=== PATIENT | male | born 1935 | race Caucasian/White ===

== ENCOUNTER 2016-12-17 08:57 | Emergency (ER) | payer MEDICARE, BC ==
[2016-12-17 09:09] VITALS: BP 139/78
--- NOTE | 2016-12-17 09:20 | UC ---
Respiratory Complaint HPI - HPI Summary HPI Summary: cough for 8 months and a 10-20 pound weight loss - History of Current Complaint Chief Complaint: UCRespiratory Stated Complaint: COUGH, AND WEIGHT LOSS Time Seen by Provider: 12/17/16 09:06 Hx Obtained From: Patient, Family/Hamper Maker Machine Onset/Duration: Gradual Onset, Lasting Weeks, Still Present Timing: Constant Severity Initially: Mild Severity Currently: Mild Character: Cough: Nonproductive Aggravating Factors: Nothing Alleviating Factors: Nothing Associated Signs And Symptoms: Positive: Negative - Allergies/Home Medications Allergies/Adverse Reactions: Allergies Allergy/AdvReac Type Severity Reaction Status Date / Time No Known Allergies Allergy Verified 12/17/16 09:09 PMH/Surg Hx/FS Hx/Imm Hx Previously Healthy: No - gout Cardiovascular History: Hypertension - Surgical History Surgical History: Yes Surgery Procedure, Year, and Place: colon resection - Family History Known Family History: Positive: None - Social History Occupation: Retired Lives: Alone Alcohol Use: Daily Substance Use Type: None Smoking Status (MU): Former Smoker Type: Smokeless Tobacco Review of Systems Constitutional: Other - 10-20 pound weight loss in past 8 months Skin: Negative Eyes: Negative ENT: Negative Respiratory: Cough, Other - orthopnea past 8 months Cardiovascular: Negative Gastrointestinal: Negative Genitourinary: Negative Motor: Negative Neurovascular: Negative Musculoskeletal: Negative Neurological: Negative Psychological: Negative All Other Systems Reviewed And Are Negative: Yes Physical Exam Triage Information Reviewed: Yes Appearance: No Pain Distress, Ill-Appearing - chronic, Thin Vital Signs: Initial Vital Signs Temp 97.6 F 12/17/16 09:03 Pulse 63 12/17/16 09:03 Resp 18 12/17/16 09:03 BP 139/78 12/17/16 09:03 Pulse Ox 96 12/17/16 09:03 Vital Signs Reviewed: Yes Eye Exam: Normal Eyes: Positive: Conjunctiva Clear ENT Exam: Normal ENT: Positive: Normal ENT inspection, Hearing grossly normal, Pharynx normal, TMs normal. Negative: Nasal congestion, Nasal drainage, Trismus, Muffled/ hoarse voice Dental Exam: Normal Neck exam: Normal Neck: Positive: Supple, Nontender, No Lymphadenopathy Respiratory Exam: Normal Respiratory: Positive: Chest non-tender, Lungs clear, Normal breath sounds, No respiratory distress, No accessory muscle use Cardiovascular Exam: Normal Cardiovascular: Positive: RRR, No Murmur, Pulses Normal, Brisk Capillary Refill Abdominal Exam: Normal Abdomen Description: Positive: Nontender, No Organomegaly, Soft Bowel Sounds: Positive: Present Musculoskeletal Exam: Normal Musculoskeletal: Positive: Strength Intact, ROM Intact, No Edema Neurological Exam: Normal Neurological: Positive: Alert, Muscle Tone Normal Psychological Exam: Normal Psychological: Positive: Normal Response To Family, Age Appropriate Behavior Skin Exam: Normal UC Diagnostic Evaluation - Laboratory O2 Sat by Pulse Oximetry: 96 - Radiology Xray Interpretation: Positive (See Comments) - chronic obstructive lung disease changes Radiology Interpretation Completed By: ED Physician, Radiologist - EKG Cardiac Rate: Bradycardia Cardiac Rhythm: Sinus: Normal Ectopy: None ST Segment: Normal Respiratory Course/Dx - Course Course Of Treatment: d/c with reccomendation to follow immediatly at emergency department for additional care - Differential Dx/Diagnosis Differential Diagnosis/HQI/PQRI: Asthma, Bronchitis, Laryngitis, Sinusitis, Tuberculosis Provider Diagnoses: Chronic Cough and weight loss - Physician Notification/Consults Instructed by Provider To: Transfer Discharge - Discharge Plan Condition: Stable Disposition: HOME Patient Education Materials: Dyspnea (ED) Referrals: Emanuel Gary MD [Primary Care Provider] - As Soon As Possible Additional Instructions: We are recommending that you report directly to the hospital for further care and evaluation
--- NOTE | 2016-12-17 09:45 | RAD ---
INDICATION: Shortness of breath. Productive cough. COMPARISON: September 22, 2016 chest radiograph. TECHNIQUE: Dual energy PA and routine lateral views of the chest were obtained. REPORT: Elevated lung volumes and both diffuse mild prominence of the interstitial markings and patchy rarefaction of the mid to upper lung zone interstitial markings. No focal pulmonary lesion, compelling alveolar consolidation, pleural effusion, pneumothorax. The heart, pulmonary vasculature, and mediastinal contours are unremarkable. Polyarticular degenerative arthropathy. Suggestion of bilateral gynecomastia. IMPRESSION: Stigmata of probable chronic obstructive lung disease. No acute pulmonary or cardiac process evident.
== END 2016-12-17 10:16 | disposition home or self-care (01) ==
LOC: UCEAST 08:57
DX: R05 Cough (principal); R63.4 Abnormal weight loss; I10 Essential (primary) hypertension
CPT/HCPCS: 71020; 93005; 99211; G0463

== ENCOUNTER 2016-12-17 10:38 | Emergency (ER) | payer MEDICARE, BC ==
[2016-12-17] MEDS ORDERED: methylPREDNISolone 125 MG* 2 ML VIAL IV ONE (17:49)
[2016-12-17] MEDS ORDERED: Albuterol/Ipratropium NEB.SOL* Albuterol 2.5 MG/Ipratropium 0.5 MG 3 ML INH ONE (17:49)
--- NOTE | 2016-12-17 18:44 | ED ---
Jessica Hung Edward, scribed for Shan Hopkins MD on 12/17/16 at 1743 . Shortness of Breath - HPI Summary HPI Summary: 81 y/o male presents to the ED coming from [facility] c/o acute on chronic, gradual onset SOB that has been getting worse since April of 2016 - the past 7/8 months. The pt has also lost weight (roughly 10 lbs) since April of 2016. Associated sx: productive cough (yellow), sleep disturbance and wheezing. Pt has trouble sleeping because lying down aggravates his SOB. Denies CP, calf pain /swelling. Daily drinker. PMHx gout, HTN. SHx colostomy in . Past medications reviewed on visit. - History of Current Complaint Chief Complaint: EDShortnessOfBreath Time Seen by Provider: 12/17/16 17:36 Hx Obtained From: Patient Onset/Duration: Gradual Onset, Lasting Weeks - Months (Apr 2016) Aggrevating Factors: Recumbent Position Associated Signs & Symptoms: Cough (Productive) - Yellow, Wheezing - Allergy/Home Medications Allergies/Adverse Reactions: Allergies Allergy/AdvReac Type Severity Reaction Status Date / Time No Known Allergies Allergy Verified 12/17/16 09:09 Home Medications: Home Medications Allopurinol TAB* [Zyloprim 300 MG TAB*] 300 mg PO DAILY 12/17/16 [History Confirmed 12/17/16] Atenolol TAB* [Tenormin TAB* 50 MG] 25 mg PO DAILY 12/17/16 [History Confirmed 12/17/16] Lisinopril TAB* [Prinivil TAB*] 20 mg PO DAILY 12/17/16 [History Confirmed 12/17] PMH/Surg Hx/FS Hx/Imm Hx Previously Healthy: No Cardiovascular History: Reports: Hx Hypertension - ON MEDS Respiratory History: Denies: Hx Asthma, Hx Chronic Obstructive Pulmonary Disease (COPD) - Surgical History Surgery Procedure, Year, and Place: colon resection Infectious Disease History: No Infectious Disease History: Denies: Traveled Outside the [place] in Last 30 Days - Social History Alcohol Use: Daily Alcohol Amount: 4 beers a day Substance Use Type: Reports: None Smoking Status (MU): Former Smoker Type: Smokeless Tobacco Review of Systems Constitutional: Other - Lost 10 lbs in the past 7-8 months Eyes: Negative ENT: Negative Cardiovascular: Negative Negative: Chest Pain Positive: Shortness Of Breath, Cough, Other - Wheezing Gastrointestinal: Negative Genitourinary: Negative Musculoskeletal: Negative Skin: Negative Neurological: Negative Psychological: Other - Sleep disturbance All Other Systems Reviewed And Are Negative: Yes Physical Exam Triage Information Reviewed: Yes Vital Signs On Initial Exam: Initial Vitals Temp Pulse Resp BP Pulse Ox 97.5 F 59 20 139/74 96 12/17/16 10:51 12/17/16 10:51 12/17/16 10:51 12/17/16 10:51 12/17/16 10:51 Vital Signs Reviewed: Yes Appearance: Positive: Ill-Appearing - chronic, thin, tired, and mild conversational dyspnea Skin: Positive: Pale Head/Face: Positive: Normal Head/Face Inspection Eyes: Positive: EOMI ENT: Positive: Normal ENT inspection Neck: Positive: Nontender Respiratory/Lung Sounds: Positive: Decreased Breath Sounds, Wheezes Cardiovascular: Positive: RRR. Negative: Murmur Abdomen Description: Positive: Nontender Musculoskeletal: Positive: Strength/ROM Intact Neurological: Positive: Sensory/Motor Intact, Alert, Oriented to Person Place, Time, CN Intact II-III Psychiatric: Positive: Normal - Amber Coma Scale Best Eye Response: 4 - Spontaneous Best Motor Response: 6 - Obeys Commands Best Verbal Response: 5 - Oriented Coma Scale Total: 15 Diagnostics - Vital Signs Vital Signs Temp Pulse Resp BP Pulse Ox 12/17/16 17:22 98.5 F 65 20 177/98 96 12/17/16 16:05 97.2 F 54 20 185/98 94 12/17/16 14:53 97.2 F 58 20 195/97 95 12/17/16 13:39 97.2 F 64 20 207/103 94 12/17/16 11:56 97.7 F 60 20 189/88 95 12/17/16 10:51 97.5 F 59 20 139/74 96 - Laboratory Lab Statement: Any lab studies that have been ordered have been reviewed, and results considered in the medical decision making process. - EKG 1 EKG Rhythm: Sinus Rhythm - @ 60 bpm EKG Interpretation: 18:20 - NO STEMI Course/Dx - Course Course Of Treatment: 81 yr old male with weight loss, SOB , chronic coughing, wheezing on exam and dyspnea. Will order CT chest abd pelvis. WOrk up pending. - Diagnoses Provider Diagnoses: Weight loss, Shortness of breath Discharge - Discharge Plan Condition: Fair Disposition: OTHER Discharge Disposition Comment: work up pending, sign out Dr Reeder at 1900 The documentation as recorded by the Jessica nichole Edward accurately reflects the service I personally performed and the decisions made by me, Shan oHpkins MD.
[2016-12-17 18:59] LABS: Hematocrit 46 % (42-52); Hemoglobin 15.3 g/dl (14.0-18.0); Mean Corpuscular HGB Conc 34 g/dl (31-36); Mean Corpuscular Hemoglobin 36 pg (27-31); Mean Platelet Volume 8 um3 (7.4-10.4); Red Blood Count 4.22 10^6/ul (4.0-5.4); Red Cell Distribution Width 16 % (10.5-15); White Blood Count 5.4 10^3/ul (3.5-10.8)
[2016-12-17 19:01] LABS: Add Diff/Slide Review? Slide Review Added; Comments Flag Yes; Mean Corpuscular Volume 108 fL (80-94)
[2016-12-17 19:20] LABS: Troponin I 0.01 ng/mL (<0.04)
[2016-12-17 19:28] LABS: ALT 20 U/L (7-52); Albumin 3.7 g/dL (3.2-5.2); Alkaline Phosphatase 107 U/L (34-104); BUN/Creatinine Ratio 10.8 (8-20); Blood Urea Nitrogen 8 mg/dL (6-24); C Reactive Protein 1.59 mg/L (< 5.00); CO2 Carbon Dioxide 28 mmol/L (22-32); Calcium 9.6 mg/dL (8.6-10.3); Chloride 97 mmol/L (101-111); EGFR African American 131.2 (>60); Globulin 3.8 g/dL (2-4); Glucose 92 mg/dL (70-100); Magnesium 1.9 mg/dL (1.9-2.7); Sodium 132 mmol/L (133-145); Total Protein 7.5 g/dL (6.4-8.9)
[2016-12-17 19:40] LABS: Add Path Review? YES; Macrocytosis 2+
[2016-12-17] MEDS ORDERED: Iohexol 350* (CONTRAST) 500 ML MDV IV ONE (19:52)
[2016-12-17 19:54] LABS: TSH (Thyroid Stimulating Horm) 2.04 mcIU/mL (0.34-5.60)
[2016-12-17 20:41] LABS: Urine Bacteria Absent (Absent); Urine Bilirubin Negative (Negative); Urine Glucose Negative (Negative); Urine Nitrite Negative (Negative)
--- NOTE | 2016-12-17 20:43 | RAD ---
INDICATION: Shortness of breath, weight loss. COMPARISON: Comparison is made with a prior chest x-ray study from December 17, 2016. TECHNIQUE: A CT angiogram of the chest and a CT of the abdomen and pelvis was performed with intravenous contrast following intravenous injection of 100 ml of Omnipaque 350 nonionic contrast. Contiguous axial sections were obtained from the lung apices through the symphysis pubis. Images were reconstructed in the coronal and sagittal planes. FINDINGS: CT ANGIOGRAM OF THE CHEST: There is relatively homogeneous opacification of the pulmonary arteries. No intraluminal filling defect or pulmonary embolism is seen. The heart is within normal limits in size. No pericardial effusion is present. There are coronary artery calcifications. The thoracic aorta is normal in caliber and demonstrates homogeneous contrast opacification without evidence for dissection. There is moderate calcific plaque present. There is a mildly prominent subcarinal lymph node measuring 1.2 cm in transverse dimension. No other enlarged mediastinal lymph nodes are seen. There are mildly prominent hilar lymph nodes on both sides measuring up to 1.4 cm in size. There is a small dependent infiltrate in the right lower lobe suggestive of atelectasis. The lungs are otherwise clear. No pleural effusion is seen. CT OF THE ABDOMEN AND PELVIS: The liver and spleen are normal in size. The liver is mildly heterogeneous. There is a 1.0 cm hypodense area in the superior portion of the right hepatic lobe no other focal lateral abnormalities are seen. No calcified gallstones are noted. The pancreas appears to be within normal limits. The kidneys and adrenal glands are normal in size. No hydronephrosis is seen. No significant focal renal abnormality is seen. The prostate gland is enlarged measuring 6.0 cm in transverse dimension. The abdominal aorta is normal in caliber. There is moderate to severe calcific plaque present. No significant enlarged retroperitoneal lymph nodes are seen. The stomach, small and large bowel appear nondistended. The appendix is not visualized. There are scattered diverticuli throughout the colon. There is no evidence for diverticulitis or colitis. No free intraperitoneal air or fluid is seen. No significant focal osseous abnormality is seen. IMPRESSION: 1. NO EVIDENCE FOR PULMONARY EMBOLISM. 2. MILDLY ENLARGED MEDIASTINAL AND HILAR LYMPH NODES. 3. 1 CM NONSPECIFIC HYPODENSE HEPATIC LESION RECOMMEND A FOLLOW-UP HEPATIC ULTRASOUND FOR FURTHER EVALUATION. 4. PROSTATIC HYPERTROPHY.
[2016-12-17 20:48] LABS: Anion Gap 7 mmol/L (2-11)
[2016-12-17] MEDS ORDERED: Albuterol HFA INHALER* 8 gm MDI INH ONE (21:16)
[2016-12-17] MEDS ORDERED: Levofloxacin TAB* 500 MG PO ONE (21:17)
[2016-12-17 21:36] VITALS: BP 161/82
--- NOTE | 2016-12-18 07:02 | ED ---
Jacob Hung Soohyun, scribed for Lei Reeder MD on 12/17/16 at 2119 . Progress - Progress Note Progress Note: Signed out at shift change from Dr. Hopkins. Upon re-evaluation pt is noted with rhonchi and wheeze at left base. Pt remains stable throughout ED course. Pt is discharged home with dx of asthmatic bronchitis, and weight loss. pt condition was stable - Results/Orders Results/Orders: CTA chest/abd/P -- 1. NO EVIDENCE FOR PULMONARY EMBOLISM. 2. MILDLY ENLARGED MEDIASTINAL AND HILAR LYMPH NODES. 3. 1 CM NONSPECIFIC HYPODENSE HEPATIC LESION RECOMMEND A FOLLOW-UP HEPATIC ULTRASOUND FOR FURTHER EVALUATION. 4. PROSTATIC HYPERTROPHY. Re-Evaluation - Re-Evaluation First Eval Re-Evaluation Time: 21:13 Comment: MD in room to update pt on lab work and imaging results. Hard copies are provided to patient. Course/Dx - Diagnoses Provider Diagnoses: Weight loss, Asthmatic bronchitis The documentation as recorded by the lioribJacob roman Soohyun accurately reflects the service I personally performed and the decisions made by me, Lei Reeder MD.
== END 2016-12-17 21:44 ==
LOC: ED 10:38
DX: J45.909 Unspecified asthma, uncomplicated (principal); R63.4 Abnormal weight loss; R05 Cough; R06.2 Wheezing; Z86.79 Personal history of other diseases of the circulatory system
CPT/HCPCS: 36415; 71275; 74177; 80053; 81003; 81015; 83605; 83735; 83880; 84443; 84484; 85025; 85060; 85610; 86140; 87086; 93005; 94640; 94760; 96374; 99284; A9270-GY; J2930; Q9967

== ENCOUNTER 2017-03-27 19:05 | Inpatient (IN) | payer MEDICARE, BC ==
[2017-03-27 20:56] LABS: Hematocrit 37 % (42-52); Hemoglobin 12.6 g/dl (14.0-18.0); Mean Corpuscular HGB Conc 34 g/dl (31-36); Mean Corpuscular Hemoglobin 36 pg (27-31); Mean Platelet Volume 9 um3 (7.4-10.4); Red Blood Count 3.52 10^6/ul (4.0-5.4); Red Cell Distribution Width 14 % (10.5-15); White Blood Count 7.2 10^3/ul (3.5-10.8)
--- NOTE | 2017-03-27 20:57 | RAD ---
INDICATION: Left-sided weakness COMPARISON: None TECHNIQUE: Noncontrast axial source images were acquired from the skull base to the vertex. FINDINGS: Ventricles/sulci: There is cortical atrophy with compensatory dilatation of the CSF spaces. Brain parenchyma: There is periventricular and subcortical white matter change compatible with chronic ischemia. Intracranial hemorrhage:None. Extra-axial spaces: There are no abnormal extra axial fluid collections or evidence of extra-axial mass. Calvarium: There is no calvarial fracture or other calvarial abnormality. Scalp: There is no evidence of scalp or extracalvarial soft tissue abnormality. Paranasal sinuses/mastoid: There is pansinusitis with both acute and chronic findings with a short air-fluid level in right frontal and ethmoid air cells. Other: None. IMPRESSION: CORTICAL ATROPHY WITH CHRONIC MICROVASCULAR ISCHEMIC CHANGES. FINDINGS OF ACUTE AND CHRONIC PANSINUSITIS
[2017-03-27 21:08] LABS: Albumin 3.3 g/dL (3.2-5.2); BUN/Creatinine Ratio 10.3 (8-20); Calcium 9.6 mg/dL (8.6-10.3); EGFR Non-African American 74.7 (>60); Globulin 3.3 g/dL (2-4); Total Protein 6.6 g/dL (6.4-8.9)
[2017-03-27 21:14] LABS: Urine Bilirubin Negative (Negative); Urine Glucose Negative (Negative); Urine Nitrite Negative (Negative)
[2017-03-27 21:20] LABS: Troponin I 0.01 ng/mL (<0.04)
[2017-03-27 21:31] LABS: Comments Flag Yes
[2017-03-27 21:32] LABS: Add Diff/Slide Review? Slide Review Added; Mean Corpuscular Volume 106 fL (80-94)
[2017-03-27] MEDS ORDERED: Ondansetron INJ* 2 MG/ML VIAL IV PRN (21:37)
[2017-03-27] MEDS ORDERED: Iohexol 350* (CONTRAST) 500 ML MDV IV ONE (21:37)
[2017-03-27] MEDS ORDERED: Acetaminophen TAB* 325 MG PO PRN (21:40)
[2017-03-27] MEDS ORDERED: Aspirin Low Dose CHEW TAB* 81 MG PO ONE (21:40)
--- NOTE | 2017-03-27 21:41 | ED ---
Darnell Hung Nilda, scribed for Cynthia Moses MD on 03/27/17 at 2038 . Neurological HPI - HPI Summary HPI Summary: This patient is a 81 year old M presenting to [facility] accompanied by daughter with a chief complaint of left sided weakness since yesterday. Daughter states that pt leans to the left when standing and has an unsteady gait. The patient rates the pain 0/10 in severity. Symptoms aggravated and alleviated by nothing. Patient reports frequent falls (10x since yesterday), unsteadiness, left knee ecchymosis, LUE abrasion, and numbness in left arm. Daughter denies slurred speech. Pt states he is not on blood thinners. Per daughter, pt has been gradually losing weight and becoming more weak for the past year. - History of Current Complaint Chief Complaint: EDNeurologicalDeficit Stated Complaint: POSS STROKE Time Seen by Provider: 03/27/17 19:58 Hx Obtained From: Patient, Family/Loan Inspector - daughter Onset/Duration: Sudden Onset Timing: Constant Neurological Deficit Location: LUE, LLE Pain Intensity: 0 Pain Scale Used: 0-10 Numeric Character: Weak, Numbness/Tingling, Other: - left sided weakness Aggravating: Nothing Alleviating: Nothing Associated Signs and Symptoms: Positive: Unsteady Gait, Weakness, Numbness TPA Considered: No - Allergy/Home Medications Allergies/Adverse Reactions: Allergies Allergy/AdvReac Type Severity Reaction Status Date / Time No Known Allergies Allergy Verified 12/17/16 09:09 PMH/Surg Hx/FS Hx/Imm Hx Cardiovascular History: Reports: Hx Hypertension - ON MEDS Respiratory History: Denies: Hx Asthma, Hx Chronic Obstructive Pulmonary Disease (COPD) - Surgical History Surgery Procedure, Year, and Place: colon resection, diverticulitis resection Infectious Disease History: No Infectious Disease History: Denies: Traveled Outside the [place] in Last 30 Days - Family History Known Family History: Negative: Hypertension - Social History Occupation: Retired Lives: With Family Alcohol Use: Daily Alcohol Amount: 4 beers a day Substance Use Type: Reports: None Smoking Status (MU): Former Smoker Type: Smokeless Tobacco Review of Systems Positive: Other - LUE abrasion, left knee ecchymosis Neurological: Other - unsteadiness, unsteady gait, falls Positive: Weakness - left sided , Numbness - left arm. Negative: Slurred Speech All Other Systems Reviewed And Are Negative: Yes Physical Exam - Summary Physical Exam Summary: General: Well appearing, no pain distress Skin: Warm, Skin Color Reflects Adequate Perfusion, Dry Eyes: EOMI, GUILLERMO ENT: Pharynx normal, TMs normal Face: Slight left sided facial droop Neck: Supple, nontender Respiratory: CTA, breath sounds present, no rhonchi, no wheezes, no rales Cardiovascular: RRR, no murmur, no rub, no gallop Abdomen: Soft, nontender, Non-distended, no guarding, no rebound Bowel: Present Musculoskeletal: LEXIE, No edema, 3 cm skin tear over left elbow though FROM, contusion on metacarpels distally on 3rd, 4th, and 5th fingers, hematoma over left knee Neuro: Sensory/motor intact, A&Ox3, CN intact 2-12 Psych: Affect/mood appropriate Triage Information Reviewed: Yes Vital Signs On Initial Exam: Initial Vitals Temp Pulse Resp BP Pulse Ox 97.6 F 67 18 138/62 96 03/27/17 19:06 03/27/17 19:06 03/27/17 19:06 03/27/17 19:06 03/27/17 19:06 Vital Signs Reviewed: Yes - Amber Coma Scale Best Eye Response: 4 - Spontaneous Best Motor Response: 6 - Obeys Commands Best Verbal Response: 5 - Oriented Coma Scale Total: 15 Diagnostics - Vital Signs Vital Signs Temp Pulse Resp BP Pulse Ox 03/27/17 19:06 97.6 F 67 18 138/62 96 - Laboratory Lab Results: Lab Results 03/27/17 03/27/17 03/27/17 Range/Units 20:43 20:43 20:43 WBC 7.2 (3.5-10.8) 10^3/ul RBC 3.52 L (4.0-5.4) 10^6/ul Hgb 12.6 L (14.0-18.0) g/dl Hct 37 L (42-52) % MCV 106 H (80-94) fL MCH 36 H (27-31) pg MCHC 34 (31-36) g/dl RDW 14 (10.5-15) % Plt Count 94 L (150-450) 10^3/ul MPV 9 (7.4-10.4) um3 Neut % (Auto) 71.0 (38-83) % Lymph % (Auto) 14.3 L (25-47) % [place] % (Auto) 8.9 (1-9) % Eos % (Auto) 5.1 (0-6) % Baso % (Auto) 0.7 (0-2) % Absolute Neuts (auto) 5.1 (1.5-7.7) 10^3/ul Absolute Lymphs (auto) 1.0 (1.0-4.8) 10^3/ul Absolute Monos (auto) 0.6 (0-0.8) 10^3/ul Absolute Eos (auto) 0.4 (0-0.6) 10^3/ul Absolute Basos (auto) 0.1 (0-0.2) 10^3/ul Absolute Nucleated RBC 0 10^3/ul Nucleated RBC % 0 INR (Anticoag Therapy) 1.02 (0.89-1.11) Sodium 139 (133-145) mmol/L Potassium 4.0 (3.5-5.0) mmol/L Chloride 102 (101-111) mmol/L Carbon Dioxide 29 (22-32) mmol/L Anion Gap 8 (2-11) mmol/L BUN 10 (6-24) mg/dL Creatinine 0.97 (0.67-1.17) mg/dL Est GFR ( Amer) 96.0 (>60) Est GFR (Non-Af Amer) 74.7 (>60) BUN/Creatinine Ratio 10.3 (8-20) Glucose 97 (70-100) mg/dL Lactic Acid (0.5-2.0) mmol/L Calcium 9.6 (8.6-10.3) mg/dL Total Bilirubin 1.00 (0.2-1.0) mg/dL AST 27 (13-39) U/L ALT 18 (7-52) U/L Alkaline Phosphatase 85 (34-104) U/L Troponin I 0.01 (<0.04) ng/mL Total Protein 6.6 (6.4-8.9) g/dL Albumin 3.3 (3.2-5.2) g/dL Globulin 3.3 (2-4) g/dL Albumin/Globulin Ratio 1.0 (1-3) Urine Color Urine Appearance Urine pH (5-9) Ur Specific [place] (1.010-1.030) Urine Protein (Negative) Urine Ketones (Negative) Urine Blood (Negative) Urine Nitrate (Negative) Urine Bilirubin (Negative) Urine Urobilinogen (Negative) Ur Leukocyte Esterase (Negative) Urine Glucose (Negative) 03/27/17 03/27/17 Range/Units 20:43 21:05 WBC (3.5-10.8) 10^3/ul RBC (4.0-5.4) 10^6/ul Hgb (14.0-18.0) g/dl Hct (42-52) % MCV (80-94) fL MCH (27-31) pg MCHC (31-36) g/dl RDW (10.5-15) % Plt Count (150-450) 10^3/ul MPV (7.4-10.4) um3 Neut % (Auto) (38-83) % Lymph % (Auto) (25-47) % [place] % (Auto) (1-9) % Eos % (Auto) (0-6) % Baso % (Auto) (0-2) % Absolute Neuts (auto) (1.5-7.7) 10^3/ul Absolute Lymphs (auto) (1.0-4.8) 10^3/ul Absolute Monos (auto) (0-0.8) 10^3/ul Absolute Eos (auto) (0-0.6) 10^3/ul Absolute Basos (auto) (0-0.2) 10^3/ul Absolute Nucleated RBC 10^3/ul Nucleated RBC % INR (Anticoag Therapy) (0.89-1.11) Sodium (133-145) mmol/L Potassium (3.5-5.0) mmol/L Chloride (101-111) mmol/L Carbon Dioxide (22-32) mmol/L Anion Gap (2-11) mmol/L BUN (6-24) mg/dL Creatinine (0.67-1.17) mg/dL Est GFR ( Amer) (>60) Est GFR (Non-Af Amer) (>60) BUN/Creatinine Ratio (8-20) Glucose (70-100) mg/dL Lactic Acid 1.8 (0.5-2.0) mmol/L Calcium (8.6-10.3) mg/dL Total Bilirubin (0.2-1.0) mg/dL AST (13-39) U/L ALT (7-52) U/L Alkaline Phosphatase (34-104) U/L Troponin I (<0.04) ng/mL Total Protein (6.4-8.9) g/dL Albumin (3.2-5.2) g/dL Globulin (2-4) g/dL Albumin/Globulin Ratio (1-3) Urine Color Yellow Urine Appearance Clear Urine pH 7.0 (5-9) Ur Specific [place] 1.005 L (1.010-1.030) Urine Protein Negative (Negative) Urine Ketones Negative (Negative) Urine Blood Negative (Negative) Urine Nitrate Negative (Negative) Urine Bilirubin Negative (Negative) Urine Urobilinogen Negative (Negative) Ur Leukocyte Esterase Negative (Negative) Urine Glucose Negative (Negative) Result Diagrams: 03/27/17 20:43 03/27/17 20:43 Lab Statement: Any lab studies that have been ordered have been reviewed, and results considered in the medical decision making process. - CT Brain CT Interpretation Completed By: Radiologist - CT Brain, per radiologist, reveals CORTICAL ATROPHY WITH CHRONIC MICROVASCULAR ISCHEMIC CHANGES. FINDINGS OF ACUTE AND CHRONIC PANSINUSITIS. ED physician has reviewed this radiology report and agrees. - EKG 191 Cardiac Rate: NL EKG Rhythm: Sinus Rhythm - 65 bpm EKG Interpretation: trigeminy EKG Comparison: Other - Besides trigeminy, EKG is unchanged from 12/17/16 EKG. NIH Scale - NIH Scale Level of Consciousness: Alert/Keenly Responsive Ask Patient the Month and His/Her Age: Both Correct Ask Pt to Open/Close Eyes and Garment Sewer Hand/Release Non-Paretic Hand: Both Correctly Best Gaze (Only Horizontal Eye Movement): Normal Visual Field Testing: No Visual Loss Facial Paresis-Pt to Smile & Close Eyes or Grimace Symmetry: Minor Paralysis Motor Function - Right Arm: No Drift-Holds 10 Seconds Motor Function - Left Arm: No Drift-Holds 10 Seconds Motor Function - Right Leg: No Drift-Holds 10 Seconds Motor Function - Left Leg: No Drift-Holds 10 Seconds Limb Ataxia-Must be out of Proportion to Weakness Present: Absent Sensory (Use Pinprick to Test Arms/Legs/Trunk/Face): Normal Best Language (Describe Picture, Name Items): No Aphasia Dysarthria (Read Several Words): Normal Extinction and Inattention: No Abnormality Total Score: 1 Course/Dx - Course Assessment/Plan: EKG reveals NSR, 65 bpm, with trigeminy. Besides trigeminy, EKG is unchanged from 12/17/[address] Brain, per radiologist, reveals CORTICAL ATROPHY WITH CHRONIC MICROVASCULAR ISCHEMIC CHANGES. FINDINGS OF ACUTE AND CHRONIC PANSINUSITIS. ED physician has reviewed this radiology report and agrees. NIH = 1 for minor facial droop. [address] Rod (hospitalist) accepts pt for admit. - Diagnoses Provider Diagnoses: CVA (cerebral vascular accident) - Physician Notifications Discussed Care Of Patient With: Karie Rod - Hospitalist Time Discussed With Above Provider: 21:09 Instructed by Provider To: Admit As Inpatient Discharge - Discharge Plan Condition: Stable Disposition: ADMITTED TO [facility] Referrals: Bladimir Austin MD [Primary Care Provider] - The documentation as recorded by the Darnell nichole Nilda accurately reflects the service I personally performed and the decisions made by me, Cynthia Moses MD.
[2017-03-27] MEDS ORDERED: Aspirin EC Low Dose* 81 MG TAB.EC PO ONE (21:50)
[2017-03-27] MEDS ORDERED: Albuterol 2.5 MG/3 ML NEB.SOL* (0.083%) INH PRN (21:54)
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
[2017-03-28 07:09] LABS: Hematocrit 33 % (42-52); Hemoglobin 11.3 g/dl (14.0-18.0); Mean Corpuscular HGB Conc 34 g/dl (31-36); Mean Corpuscular Hemoglobin 36 pg (27-31); Mean Platelet Volume 9 um3 (7.4-10.4); Red Cell Distribution Width 14 % (10.5-15)
[2017-03-28 07:10] LABS: Comments Flag Yes; Mean Corpuscular Volume 106 fL (80-94)
[2017-03-28 07:19] LABS: BUN/Creatinine Ratio 11.8 (8-20); Calcium 8.9 mg/dL (8.6-10.3); EGFR African American 111.8 (>60); HDL Cholesterol 37.1 mg/dL; Potassium 3.6 mmol/L (3.5-5.0)
--- NOTE | 2017-03-28 07:42 | RAD ---
INDICATION: Cerebrovascular accident. COMPARISON: Comparison is made with a prior CT of the brain from March 27, 2017. TECHNIQUE: Sagittal T1, axial T1, T2, susceptibility, FLAIR and diffusion weighted images were obtained. FINDINGS: The ventricles, cisterns and sulci are prominent consistent with diffuse atrophy. There are small focal areas of increased signal intensity on T2-weighted images present within the subcortical and periventricular white matter most consistent with mild to moderate chronic small vessel ischemic changes. There is a focal area of restricted diffusion present within the mehreen posterior laterally on the right side measuring 1.2 x 0.7 cm in size most consistent with an acute or subacute infarct. There is no evidence for hemorrhage. There is suggestion of a second tiny area of restricted diffusion present in the subcortical white matter in the left frontal lobe measuring 0.5 and 0.2 cm in size. There is near complete opacification of the right maxillary sinus and significant mucosal thickening within the left maxillary ethmoid, sphenoid and frontal sinuses consistent with sinusitis. IMPRESSION: 1. ACUTE TO SUBACUTE LACUNAR TYPE INFARCT PRESENT WITHIN THE MEHREEN ON THE RIGHT SIDE. 2. POSSIBLE SECOND SMALL AREA OF ISCHEMIA OR INFARCT PRESENT IN THE LEFT FRONTAL LOBE. 3. MILD TO MODERATE CHRONIC SMALL VESSEL ISCHEMIC CHANGES. 4. FINDINGS CONSISTENT WITH PANSINUSITIS.
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
--- NOTE | 2017-03-28 07:59 | RAD ---
CPT II: CPT II Codes: 3100F INDICATION: Left-sided weakness COMPARISON: Noncontrast CT of the brain from the same date. TECHNIQUE: A CT angiogram of the head and neck was performed with 80 cc of Omnipaque 350. Contiguous axial sections were obtained from the thoracic inlet through the kobuk of Andrew. Images were reconstructed in the sagittal, coronal planes and in a 3-D volume rendered format. The distal cervical internal carotid artery diameter is used as the denominater for stenosis measurement. CTA NECK: The common and internal carotid arteries are patent without hemodynamically significant stenosis. Right: Below the carotid bifurcation the common carotid artery measures 8 mm in diameter. There is coarse atherosclerotic calcification of the carotid bulb but the artery only narrows to a short axis diameter of 8 mm yielding 0% degree stenosis. Left: Below the carotid bifurcation the common carotid artery measures 7 mm and diameter. There is exuberant calcified atherosclerosis at the carotid bulb narrowing the lumen to a short axis diameter of 3 mm. This causes 57% degree stenosis. The vertebral arteries are patent without gross abnormality. There is coarse atherosclerotic calcification at the origin of the left subclavian artery. CTA of the brain: The internal carotid, anterior and middle cerebral arteries appear are patent without high grade stenosis or occlusion. There is moderate calcified atherosclerosis of the petrous carotid arteries bilaterally. The vertebral, basilar and posterior cerebral arteries appear patent without high grade stenosis or occlusion. Bilaterally the posterior communicating arteries are either extremely diminutive or absent causing the kob[place] of Andrew to be incomplete. No focal luminal filling defect, aneurysm or vascular malformation is seen. NON-ARTERIAL FINDINGS: There is near complete opacification of the bilateral maxillary sinuses and ethmoid air cells. There is moderate mucosal thickening of the sphenoid sinuses. There is near complete opacification of the frontal sinuses. The right globe is hypoplastic relative to the left. Multilevel degenerative changes of the cervical spine includes loss of intervertebral disc height and marginal osteophyte formation. IMPRESSION: 1. Coarse calcification at the left carotid bulb causes approximately 57% degree stenosis. 2. There are no definite focal abrupt filling defects are other acute arterial abnormalities. 3. The right globe is hypoplastic relative to the left. This is likely chronic. Please correlate to physical examination and/or ophthalmic history. 4. Pansinusitis.
[2017-03-28] MEDS ORDERED: Pneumococcal *Vac Polyvalent 0.5 ML VIAL IM ONE (09:00)
[2017-03-28] MEDS: Allopurinol TAB* 300 MG PO SCH (09:41)
[2017-03-28] MEDS: Aspirin EC Low Dose* 81 MG TAB.EC PO SCH (09:42)
--- NOTE | 2017-03-28 13:23 | PN ---
Subjective Date of Service: 03/28/17 Interval History: This is a 81 yo male with HTN who presented with c/o gait imbalance. He was admitted with suspected CVA, later confirmed by MRI. Patient reports that he is feeling relatively well. He participated in PT this am and required some supervision with a walker, but otherwise did quite well. He denies CP, SOB, abd pain, n/v. No new weakness, numbness or tingling. Objective Active Medications: Acetaminophen (Tylenol Tab*) 650 mg PO Q4H PRN PRN Reason: FEVER/PAIN Albuterol (Ventolin 2.5 Mg/3 Ml Neb.Mary*) 2.5 mg INH Q2H PRN PRN Reason: SOB/WHEEZING Allopurinol (Zyloprim Tab*) 300 mg PO DAILY [facility] Last Admin: 03/28/17 09:41 Dose: 300 mg Aspirin (Aspirin Ec Low Dose*) 81 mg PO DAILY [facility] Last Admin: 03/28/17 09:42 Dose: 81 mg Atenolol (Tenormin Tab*) 25 mg PO DAILY [facility] Atorvastatin Calcium (Lipitor*) 40 mg PO 1700 [facility] Ondansetron HCl (Zofran Inj*) 4 mg IV Q6H PRN PRN Reason: NAUSEA Vital Signs: Temp Pulse Resp BP Pulse Ox 98.2 F 65 20 123/51 96 03/28/17 11:19 03/28/17 11:19 03/28/17 11:19 03/28/17 11:19 03/28/17 11:19 Oxygen Devices in Use Now: None Appearance: Well appearing elderly gentleman in NAD. Accompanied by his daughter. Respiratory: Symmetrical Chest Expansion and Respiratory Effort, Clear to Auscultation Cardiovascular: NL Sounds; No Murmurs; No JVD, RRR Abdominal: NL Sounds; No Tenderness; No Distention Extremities: No Edema Skin: No Rash or Ulcers Neurological: Alert and Oriented x 3, - - reduced strength in the LLE Result Diagrams: 03/28/17 06:35 03/28/17 06:35 Additional Lab and Data: . Diagnostic Imaging: MRI brain - acute/subacute lacunar infarct of the R logan and possible L frontal infarct with pansinusitis CTA - L carotid stenosis of 57% Echo - pend Assess/Plan/Problems-Billing Assessment: This is a 81 yo male with HTN and h/o gout and PUD who presented with c/o gait imbalance, admitted with acute CVA. - Patient Problems (1) Acute CVA (cerebrovascular accident) Comment: R logan infarct and possible L frontal infarct Echo pending Moderate stenosis of L ICA Start ASA and statin, LDL near target (2) Hypertension Comment: Normotensive Holding Lasix and cont atenolol (3) Full code status (4) DVT prophylaxis Comment: Start Lovenox SQ as area of infarct is small Status and Disposition: Inpatient. Referral initiated to [facility]. Anticipate readiness for dc tomorrow.
--- NOTE | 2017-03-28 13:32 | CONS ---
CONSULTING REPORT: PATIENT OF: LEAH Muñoz and Dr. Austin. DATE OF CONSULT: 03/28/17 HISTORY OF PRESENT ILLNESS: This is a 81-year-old right-handed man who has a longstanding history of hypertension, who presents with left-sided incoordination. He was admitted yesterday in the afternoon prior to that. He developed falling to the left not to the right. He had been walking independently prior to this. There was no dizziness, room spinning, lightheadedness, visual symptoms. No clear weakness or numbness. Because symptoms persisted and he was bruising himself, he came to the emergency room. He has had no recent head trauma surgery. He has had no prior stroke. He has no history of atrial fibrillation. He does not smoke. He smoked cigars more than 30 years ago. PAST MEDICAL HISTORY: Significant for diverticulitis, hypertension, gout, peptic ulcer disease. He is status post a partial colectomy for diverticulitis. He has a herniorrhaphy and a cataract surgery. 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 MEDICATIONS: He is on: 1. Lisinopril 20 mg daily. 2. Atenolol 25 mg daily. 3. He was not on aspirin or any antiplatelet medicine on admission. ALLERGIES: He has no known drug allergies. FAMILY HISTORY: There is no family history for a stroke. His mother lived into her 90s. SOCIAL HISTORY: He does use chewing tobacco. He does not drink or use drugs. His father when he was 4, run over by a train. REVIEW OF SYSTEMS: Negative in all 14 spheres other than the HPI. PHYSICAL EXAM: On exam, temperature 98.6, pulse 66, respirations 16, blood pressure 130/70. He is alert and oriented with normal speech and comprehension. Cranial nerves II through XII were intact other than his right eye, which is blind on a chronic basis and no nystagmus in the left eye. I do not appreciate a facial droop on the left today, although it was present on admission. He had dysmetria in his left arm and leg and when he stood he had a wide-based unsteady. Strength is 5/5. He had a slight left pronator drift. Sensation intact to light touch. Reflexes were 1 on equal, toes are downgoing. Neck was supple. Cardiovascular: Regular rate and rhythm. Abdomen is soft with positive bowel sounds. I reviewed his MRI scan which did show an acute stroke in the right logan. There was some mild chronic ischemic changes. He had congestion in his sinuses. He states he has a cold and has no symptoms of sinusitis. The radiologist read a possible left frontal acute stroke as well. This may just be part of his gyrus on that side, which dips, but it is possible that this is a second stroke, it is hard to be sure about this. DIAGNOSTIC STUDIES/LAB DATA: His CTA did not show any critical findings. There was calcification in his left carotid bulb, which was described as 57% degree stenosis. CT scan of the head was also done. His EKG showed ventricular trigeminy. Normal sinus rhythm. Labs include white count of 6, hematocrit of 33, platelet count of 87. INR normal. Normal CMP. LDL was 71. Vitamin B12 was 894. 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 He will need a physical therapy and perhaps can go to rehab. His echo should be done with a bubble study and I will speak to the radiologist how to assess his MRI scan better. His left frontal finding may well not be ischemic, but if it is ischemic and acute, then it would suggest embolic. I will discuss with radiologist whether a followup MRI scan which show evolution of this if it is ischemic and whether it would be useful and may change his treatment parameters for now. He will just be on the baby aspirin and his platelet count is low, so would not be more aggressive than that. Thank you for sharing his case. [id number]/[facility] #: [id number] JULIETTE
[2017-03-28] MEDS: Enoxaparin(*) 40 MG/0.4 ML SYR SUBCUT SCH (14:13)
[2017-03-28] MEDS: Atorvastatin* 40 MG TAB PO SCH (17:06)
--- NOTE | 2017-03-28 17:29 | ECHO ---
Patient: HANNAH ADAMS [facility] Rec#: [id number] : 1935 Date: 03/28/2017 Age: 81y Height: 162.56 cm / 64.0 in Weight: 54.43 kg / 120.0 lbs Sex: M BSA: 1.57 Room#: [facility] Admit Date#: 03/27/2017 Type: Inpatient Referring: Jakob Sims NP Reading: Chencho Marte DO Student Services Rep: Karmen Hudson RDCS CC: Baldimir Austin MD Transthoracic Echocardiogram Indication: CVA BP: 121/66 HR: 63 Rhythm: NSR with PVCs Findings History: HTN, gout. Technical Comments: The study quality is poor. The study is technically limited due to poor acoustic windows. The study is technically limited due to poor parasternal windows. Completed at 1445. Left Ventricle: The left ventricular chamber size is normal. Mild concentric left ventricular hypertrophy is observed. Global left ventricular wall motion and contractility are within normal limits. There is normal left ventricular systolic function. The estimated ejection fraction is 60-65%. Abnormal left ventricular diastolic filling is observed, consistent with impaired relaxation. Left Atrium: The left atrium is mildly dilated. Right Ventricle: The right ventricular chamber size and systolic function are within normal limits. Right Atrium: The right atrium is mildly dilated. Interatrial septum appears intact without evidence of shunting. The bubble study is negative. A patent foramen ovale is not demonstrated with color Doppler and agitated contrast. Aortic Valve: The aortic valve is trileaflet. The aortic valve leaflets are mildly thickened. There is no evidence of aortic regurgitation. There is no evidence of aortic stenosis. Mitral Valve: The mitral valve leaflets are mildly thickened. There is mild mitral regurgitation. There is no evidence of mitral stenosis. Tricuspid Valve: The tricuspid valve leaflets are mildly thickened. There is mild tricuspid regurgitation. No pulmonary hypertension is noted. There is no tricuspid stenosis. Pulmonic Valve: The pulmonic valve structure is not well visualized. There is no pulmonic stenosis. Pericardium: There is no significant pericardial effusion. Aorta: There is mild dilatation of the ascending aorta. There is no dilatation of the aortic arch. There is mild dilatation of the aortic root. Pulmonary Artery: The main pulmonary artery is not well visualized. Venous: The inferior vena cava appears normal in size. There is a greater than 50% respiratory change in the inferior vena cava dimension. Contrast: Normal saline was used as contrast for the bubble study. Images 98 and 99. Intravenous contrast was used to help determine presence of intracardiac shunting. Conclusions The left ventricular chamber size is normal. Mild concentric left ventricular hypertrophy is observed. Global left ventricular wall motion and contractility are within normal limits. There is normal left ventricular systolic function. The estimated ejection fraction is 60-65%. The left atrium is mildly dilated. The right ventricular chamber size and systolic function are within normal limits. No more than mild valvular regurgitation noted. There is mild dilatation of the aortic root and ascending aorta The agitated saline "bubble study" is negative. No prior studies available for comparison at time of interpretation. Measurements Name Value Normal Range RVIDd (AP) 2D 3.1 cm (0.9 - 2.6) RVDdMajor (2D) 4.1 cm (2.2 - 4.4) RAd ISD 4CH 5.1 cm (3.4 - 4.9) RA (A4C)W 4.8 cm (2.9 - 4.6) IVSd (2D) 1.1 cm (0.6 - 1) LVPWd (2D) 1.1 cm (0.6 - 1) LVIDs (2D) 3.1 cm - LV FS (2D) 22 % (25 - 45) Aortic Annulus 2.5 cm (1.4 - 2.6) Ao root diameter (2D) 3.8 cm (2.1 - 3.5) Ascending Ao 3.8 cm (2.1 - 3.4) Aortic arch 3 cm (1.8 - 3.4) LA dimension (AP) 2D 3.8 cm (2.3 - 3.8) LAd ISD 4CH 4.7 cm (2.9 - 5.3) LA ISD 4CH W 4.2 cm (2.5 - 4.5) Name Value Normal Range LA ESV SP 4CH (A/L) 64 ml - LA ESV BP (A/L) index 60 ml/m2 - LA ESV SP 4CH (MOD) 55 ml - Name Value Normal Range MV E-wave Vmax 0.57 m/sec - MV deceleration time 267.42 msec - MV A-wave Vmax 0.91 m/sec - MV E:A ratio 0.62 ratio - LV septal e' Vmax 0.05 m/sec - LV lateral e' Vmax 0.07 m/sec - LV E:e' septal ratio 11.4 ratio - LV E:e' lateral ratio 8.14 ratio - Name Value Normal Range AV Vmax 0.97 m/sec - AV VTI 22.29 cm - AV peak gradient 3.8 mmHg - AV mean gradient 2.13 mmHg - LVOT Vmax 0.89 m/sec - LVOT VTI 15.24 cm - LVOT peak gradient 3.19 mmHg - LVOT mean gradient 1.83 mmHg - Name Value Normal Range MR flow (PISA) 22.2 ml/sec - MR PISA radius 0.3 cm - MR alias Vmax 42 cm/sec - Name Value Normal Range TR Vmax 2.2 m/sec - TR peak gradient 19 mmHg - RAP 3 mmHg - RVSP 22 mmHg - IVC diameter 1.4 cm - Name Value Normal Range PV Vmax 0.84 m/sec - PV peak gradient 2.85 mmHg -
[2017-03-29] MEDS: Allopurinol TAB* 300 MG PO SCH (09:54)
[2017-03-29] MEDS: Atenolol TAB* 25 MG PO SCH (09:54)
[2017-03-29] MEDS: Aspirin EC Low Dose* 81 MG TAB.EC PO SCH (09:54)
--- NOTE | 2017-03-29 10:36 | PN ---
Subjective Date of Service: 03/29/17 Interval History: Patient offers no new complaints. Continues to be unsteady on his feet. He has a chronic cough at night, no SOB. No c/o CP, abd pain, n/v. Objective Active Medications: Acetaminophen (Tylenol Tab*) 650 mg PO Q4H PRN PRN Reason: FEVER/PAIN Albuterol (Ventolin 2.5 Mg/3 Ml Neb.Mary*) 2.5 mg INH Q2H PRN PRN Reason: SOB/WHEEZING Allopurinol (Zyloprim Tab*) 300 mg PO DAILY [facility] Last Admin: 03/29/17 09:54 Dose: 300 mg Aspirin (Aspirin Ec Low Dose*) 81 mg PO DAILY [facility] Last Admin: 03/29/17 09:54 Dose: 81 mg Atenolol (Tenormin Tab*) 25 mg PO DAILY [facility] Last Admin: 03/29/17 09:54 Dose: 25 mg Atorvastatin Calcium (Lipitor*) 40 mg PO 1700 [facility] Last Admin: 03/28/17 17:06 Dose: 40 mg Enoxaparin Sodium (Lovenox(*)) 40 mg SUBCUT Q24H [facility] Last Admin: 03/28/17 14:13 Dose: 40 mg Ondansetron HCl (Zofran Inj*) 4 mg IV Q6H PRN PRN Reason: NAUSEA Vital Signs: Temp Pulse Resp BP Pulse Ox 98.5 F 41 16 143/78 94 03/29/17 07:19 03/29/17 07:19 03/29/17 07:19 03/29/17 07:19 03/29/17 07:19 Oxygen Devices in Use Now: None Appearance: Elderly male in NAD Respiratory: Symmetrical Chest Expansion and Respiratory Effort, Clear to Auscultation Cardiovascular: NL Sounds; No Murmurs; No JVD, RRR Abdominal: NL Sounds; No Tenderness; No Distention Extremities: No Edema Skin: No Rash or Ulcers Neurological: Alert and Oriented x 3 Result Diagrams: 03/28/17 06:35 03/28/17 06:35 Additional Lab and Data: . Diagnostic Imaging: MRI brain - acute/subacute lacunar infarct of the R logan and possible L frontal infarct with pansinusitis CTA - L carotid stenosis of 57% Echo - pend Assess/Plan/Problems-Billing Assessment: This is a 81 yo male with HTN and h/o gout and PUD who presented with c/o gait imbalance, admitted with acute CVA. - Patient Problems (1) Acute CVA (cerebrovascular accident) Comment: R logan infarct and possible L frontal infarct Echo unremarkable Moderate stenosis of L ICA Started ASA and statin, LDL near target (2) Hypertension Comment: Normotensive Holding Lasix and cont atenolol (3) Full code status (4) DVT prophylaxis Comment: Lovenox SQ Status and Disposition: Inpatient. Plan for dc to [facility] Saturday.
[2017-03-29] MEDS: Enoxaparin(*) 40 MG/0.4 ML SYR SUBCUT SCH (13:52)
[2017-03-29] MEDS: Atorvastatin* 40 MG TAB PO SCH (17:38)
[2017-03-30] MEDS: Allopurinol TAB* 300 MG PO SCH (08:59)
[2017-03-30] MEDS: Atenolol TAB* 25 MG PO SCH (08:59)
[2017-03-30] MEDS: Aspirin EC Low Dose* 81 MG TAB.EC PO SCH (08:59)
--- NOTE | 2017-03-30 13:36 | PN ---
Subjective Date of Service: 03/30/17 Interval History: Some unsteadiness walking. No other c/o. Objective Active Medications: Acetaminophen (Tylenol Tab*) 650 mg PO Q4H PRN PRN Reason: FEVER/PAIN Albuterol (Ventolin 2.5 Mg/3 Ml Neb.Mary*) 2.5 mg INH Q2H PRN PRN Reason: SOB/WHEEZING Allopurinol (Zyloprim Tab*) 300 mg PO DAILY [facility] Last Admin: 03/30/17 08:59 Dose: 300 mg Aspirin (Aspirin Ec Low Dose*) 81 mg PO DAILY [facility] Last Admin: 03/30/17 08:59 Dose: 81 mg Atenolol (Tenormin Tab*) 25 mg PO DAILY [facility] Last Admin: 03/30/17 08:59 Dose: 25 mg Atorvastatin Calcium (Lipitor*) 40 mg PO 1700 [facility] Last Admin: 03/29/17 17:38 Dose: 40 mg Enoxaparin Sodium (Lovenox(*)) 40 mg SUBCUT Q24H [facility] Last Admin: 03/29/17 13:52 Dose: 40 mg Ondansetron HCl (Zofran Inj*) 4 mg IV Q6H PRN PRN Reason: NAUSEA Vital Signs 03/29/17 03/29/17 03/29/17 15:34 19:40 20:00 Temperature 98.6 F 98.4 F Pulse Rate 68 67 Respiratory 18 16 16 Rate Blood Pressure 142/55 154/73 (mmHg) O2 Sat by Pulse 97 95 Oximetry 03/29/17 03/30/17 03/30/17 23:43 00:37 03:32 Temperature 98.0 F 97.9 F Pulse Rate 70 72 Respiratory 16 16 Rate Blood Pressure 185/79 160/90 152/77 (mmHg) O2 Sat by Pulse 94 96 Oximetry 03/30/17 03/30/17 08:00 08:26 Temperature 98.6 F Pulse Rate 73 Respiratory 16 16 Rate Blood Pressure 139/83 (mmHg) O2 Sat by Pulse 96 Oximetry Oxygen Devices in Use Now: None Appearance: Alert, in a chair. In good spirits. Looks comfortable. Eyes: No Scleral Icterus, - - Blind in R eye, R ptosis since accident a few years ago. Neck: NL Appearance and Movements; NL JVP, No Thyroid Enlargement, Masses Respiratory: Symmetrical Chest Expansion and Respiratory Effort, Clear to Auscultation, Clear to Percussion Cardiovascular: NL Sounds; No Murmurs; No JVD, RRR, No Edema, - Extremities: No Edema, No Clubbing, Cyanosis, - Skin: No Rash or Ulcers, No Nodules or Sclerosis, - Neurological: Alert and Oriented x 3, NL Sensation Result Diagrams: 03/28/17 06:35 03/28/17 06:35 Additional Lab and Data: . Diagnostic Imaging: MRI brain - acute/subacute lacunar infarct of the R logan and possible L frontal infarct with pansinusitis CTA - L carotid stenosis of 57% Echo - pend Assess/Plan/Problems-Billing Assessment: This is a 81 yo male with HTN and h/o gout and PUD who presented with c/o gait imbalance, admitted with acute CVA. - Patient Problems (1) Acute CVA (cerebrovascular accident) Current Visit: Yes Status: Acute Code(s): I63.9 - CEREBRAL INFARCTION, UNSPECIFIED SNOMED Code(s): 095421715 Comment: R logan infarct and possible L frontal infarct Echo unremarkable Moderate stenosis of L ICA Continue ASA and statin. (2) Hypertension Current Visit: Yes Status: Acute Code(s): I10 - ESSENTIAL (PRIMARY) HYPERTENSION SNOMED Code(s): 70508874 Comment: Holding Lasix and cont atenolol (3) Peptic ulcer disease Current Visit: Yes Status: Acute Code(s): K27.9 - PEPTIC ULC, SITE UNSP, UNSP AC OR CHR, W/O HEMOR OR PERF SNOMED Code(s): 15067342 Comment: Continue home dose omeprazole. Status and Disposition: Inpatient. Plan for dc to [facility] Saturday.
[2017-03-30] MEDS ORDERED: Omeprazole CAP* 20 MG PO SCH (14:00)
[2017-03-30] MEDS: Enoxaparin(*) 40 MG/0.4 ML SYR SUBCUT SCH (14:38)
[2017-03-30] MEDS ORDERED: GuaiFENesin DM* 5 ML UDC PO PRN (15:55)
[2017-03-30] MEDS: Atorvastatin* 40 MG TAB PO SCH (17:51)
[2017-03-31 06:14] LABS: Hematocrit 32 % (42-52); Hemoglobin 10.9 g/dl (14.0-18.0); Mean Corpuscular HGB Conc 34 g/dl (31-36); Mean Corpuscular Hemoglobin 36 pg (27-31); Mean Platelet Volume 9 um3 (7.4-10.4); Red Cell Distribution Width 14 % (10.5-15); White Blood Count 5.6 10^3/ul (3.5-10.8)
[2017-03-31 06:26] LABS: Comments Flag Yes; Mean Corpuscular Volume 107 fL (80-94)
[2017-03-31 09:02] VITALS: BP 149/63
--- NOTE | 2017-03-31 09:29 | PN ---
Progress Note - Progress Note Date of Service: 03/31/17 Note: Time spent on discharge 35 minutes. I discussed dx, tx, and prognosis with his daughter.
[2017-03-31] MEDS: Allopurinol TAB* 300 MG PO SCH (09:33)
[2017-03-31] MEDS: Atenolol TAB* 25 MG PO SCH (09:33)
[2017-03-31] MEDS: Aspirin EC Low Dose* 81 MG TAB.EC PO SCH (09:33)
--- NOTE | 2017-03-31 10:48 | DS ---
CC: Dr. Austin DISCHARGE SUMMARY: DATE OF ADMISSION: 03/27/17 DATE OF TRANSFER: 03/31/17 HISTORY OF PRESENT ILLNESS: This 81-year-old man presented with ataxia and complaint of falling to the left. He was felt to have a cerebrovascular accident. MRI of the brain showed an acute- to-subacute lacunar infarct in the right logan and a possible small area of ischemia or infarct in the left frontal lobe. CTA of the head did not show any significant stenosis. The patient received physical therapy and occupational therapy. He did well, although he still showed some ataxia and gait instability. He was being transferred to the [facility] for rehabilitation. FINAL DIAGNOSES: 1. Cerebrovascular accident. 2. Hypertension. 3. Peptic ulcer disease. MEDICATIONS ON DISCHARGE: 1. Acetaminophen 650 mg every 4 hours p.r.n. 2. Albuterol 2.5 mg by nebulizer every 2 hours p.r.n. 3. Allopurinol 300 mg daily. 4. Aspirin 81 mg daily. 5. Atenolol 25 mg daily. 6. Atorvastatin 40 mg daily at 1700 hours. 7. Guaifenesin DM 10 mL every 4 hours p.r.n. 8. Omeprazole 20 mg every 48 hours. 9. Enoxaparin 40 mg subcu every 24 hours. [id number]/[facility] #: [id number] MTD[facility]
== END 2017-03-31 11:40 | DRG 66 ==
LOC: ED 19:05 → MEDTELE 23:56
PROVIDERS: ADMIT Pediatrics; ATTEND Internal Medicine
DX: I63.8 Other cerebral infarction (principal); F17.220 Nicotine dependence, chewing tobacco, uncomplicated; I10 Essential (primary) hypertension; R26.0 Ataxic gait; K27.9 Peptic ulcer, site unspecified, unspecified as acute or chronic, without hemorrhage or perforation; J32.4 Chronic pansinusitis; M10.9 Gout, unspecified; S50.02XA Contusion of left elbow, initial encounter; S89.82XA Other specified injuries of left lower leg, initial encounter; W18.30XA Fall on same level, unspecified, initial encounter; Z79.899 Other long term (current) drug therapy; Z80.3 Family history of malignant neoplasm of breast; Z90.01 Acquired absence of eye; Y92.009 Unspecified place in unspecified non-institutional (private) residence as the place of occurrence of the external cause
CPT/HCPCS: 36415; 70450; 70496; 70498; 70551; 80048; 80053; 80061; 81003; 82607; 83036; 83605; 84484; 85025; 85610; 87086; 90732; 93005; 93306; A9270-GY; J1650; Q9967

== ENCOUNTER 2017-03-31 08:30 | Inpatient (IN) | payer MEDICARE, BC ==
[2017-03-31] MEDS ORDERED: Bisacodyl SUPP* 10 MG SUPP PR PRN (10:37)
[2017-03-31] MEDS ORDERED: Acetaminophen TAB* 325 MG PO PRN (10:37)
[2017-03-31] MEDS ORDERED: Senna TAB PO PRN (10:37)
[2017-03-31] MEDS ORDERED: Al Hydrox/Mg Hydrox/Simet LIQ* 30 ML UDC PO PRN (10:37)
[2017-03-31] MEDS ORDERED: Magnesium Hydroxide LIQ* 30 ML UDC PO PRN (10:37)
[2017-03-31] MEDS ORDERED: Albuterol 2.5 MG/3 ML NEB.SOL* (0.083%) INH PRN (10:44)
[2017-03-31] MEDS: GuaiFENesin DM* 5 ML UDC PO PRN (13:28)
[2017-03-31] MEDS: Enoxaparin(*) 40 MG/0.4 ML SYR SUBCUT SCH (13:29)
--- NOTE | 2017-03-31 14:40 | HP ---
CC: Dr. Sam Austin * REHABILITATION ADMISSION: DATE OF ADMISSION: 03/31/17 REASON FOR ADMISSION: Right pontine stroke. HISTORY OF PRESENT ILLNESS: This is a 81-year-old man with hypertension, who notes that on 03/26/17, he started having difficulty with his balance and falling to the left side. After this had been going on for a day, he called his daughter. He ultimately was brought to the hospital and by MRI was ultimately found to have had a right pontine stroke, with also questionable ischemia in the left frontal lobe. CT of the head just showed pansinusitis. CTA showed left carotid stenosis of 57%. He had x-rays of his left elbow and knee, which just showed chondrocalcinosis. He has a skin tear on his left elbow and multiple ecchymoses from his falls. He was seen by Dr. Olvera and started on aspirin and Lipitor 40 mg daily. Echocardiogram on 03/28/17, showed ejection fraction of 60% to 65% and negative bubble study. Prior to admission, he was independent with mobility and ADLs without any assistive device. He was making his own meals. He also has a Bowflex and Elliptical that he is able to use for exercise. With occupational therapy, he required moderate amount of assistance for lower body dressing and enyg-eg-tzqhqpkq assistance for bathing and toileting. With physical therapy, he has required a pzxy-jz-oposnhpc assistance for transfers and ambulating using a rolling walker. He has not had any swallowing dysfunction noted. 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 MEDICATIONS: 1. Tylenol p.r.n. 2. Albuterol, he uses a nebulizer at home, 2 puffs q.4 hours p.r.n. that he uses just a few times per week. 3. Allopurinol 300 mg daily. 4. Aspirin 81 mg daily. 5. Atenolol 25 mg daily. 6. Lipitor 40 mg q.p.m. 7. Lovenox for DVT prophylaxis, 40 mg daily. 8. Lasix has been on hold. 9. Lisinopril has been on hold. 10. Robitussin-DM 10 mL q.4 hours p.r.n. cough, which was just started yesterday. 11. Omeprazole 20 mg every other day. ALLERGIES: No known drug allergies. FAMILY HISTORY: Mother had breast cancer, but in her 90s. SOCIAL HISTORY: He lives alone. He is . His daughter lives about 4 miles away and she has 2 sons in their 20s, who are able to stay with him if needed at discharge. His home is 1 level with 1 step to enter or he can use a ramp. No smoking, although, he does chew tobacco. He is not noticing any withdrawal or need for nicotine replacement. He drinks 3 or 4 beers per day. His healthcare proxy is his daughter, Ny Ta, phone numbers for her are [phone], [phone] or [phone]. REVIEW OF SYSTEMS: See history of present illness and past medical history. His daughter reports that he seems more frail over the last year and part of this has been evaluated as an outpatient without any specific cause found. Remaining 13- system review was completed with no significant findings. PHYSICAL EXAMINATION GENERAL: Well developed, well nourished, appearing stated age. VITAL SIGNS: Temperature 98.7, heart rate 71, respirations 18, oxygenation 95% on room air, blood pressure 149/63. HEENT: Normocephalic, atraumatic. Oropharynx is clear with upper dentures. He keeps his right eye closed and there is global atrophy around this area with blindness of the right eye. LUNGS: He has expiratory wheezes. Otherwise clear to auscultation bilaterally. HEART: Regular rate and rhythm. ABDOMEN: Active bowel sounds, soft, nontender, and nondistended. EXTREMITIES: No clubbing, cyanosis or edema. NEUROLOGICAL EXAM: Blindness of the right eye. He has extraocular eye movements intact of the left eye and otherwise cranial nerves II through XII appear intact. Motor strength is 5/5 in bilateral upper and lower extremities. He has diminished sensation in the left arm and leg. There is some decreased coordination on the left side with guhxdh-zy-oavj and npkp-kw-hnbg. MENTAL STATUS: No acute distress. Alert and appropriate. LABORATORY DATA: Today, white blood cell count 5.6, hemoglobin 10.9, hematocrit 32, platelets 86. IMPRESSION: A 81-year-old male with right pontine stroke and also questionable left frontal lobe ischemia. He will be admitted to [facility], so he can return to independent living. PLAN: 1. Stroke. Continue with aspirin and Lipitor. 2. Hypertension. Continue with his current atenolol. Lasix and lisinopril are on hold and possibly those will need to be restarted at a later date. 3. Thrombocytopenia. I looked back at labs and this has dated back for at least a year. I will order some routine laboratories. 4. Anemia. Once again, I will order some routine laboratories including vitamin B12, folate, and iron studies. 5. Impaired mobility. He will be seen by Physical Therapy for bed mobility, transfer, gait, and stair training. 6. Impaired self-care. He will be seen by Occupational Therapy for ADL training and equipment evaluation. He will also need IADL training. 7. Questionable impaired cognition. I will have Speech Therapy do a screen on him. 8. Advance directives: He is a full code. His daughter, Ny Ta, is his healthcare proxy if he cannot make decisions for himself. 9. Estimated length of stay is 7 to 10 days. [id number]/[facility] #: [id number] [facility]
[2017-03-31] MEDS: Atorvastatin* 40 MG TAB PO SCH (17:17)
[2017-03-31] MEDS: Albuterol HFA INHALER* 8 gm MDI INH PRN (18:28)
[2017-03-31] MEDS: Docusate CAP* 100 MG PO SCH (21:24)
[2017-04-01] MEDS: Omeprazole CAP* 20 MG PO SCH (05:24)
[2017-04-01 07:27] LABS: Comments Flag Yes; Hematocrit 33 % (42-52); Hemoglobin 11.2 g/dl (14.0-18.0); Mean Corpuscular HGB Conc 34 g/dl (31-36); Mean Corpuscular Hemoglobin 36 pg (27-31); Mean Corpuscular Volume 106 fL (80-94); Mean Platelet Volume 8 um3 (7.4-10.4); Red Cell Distribution Width 14 % (10.5-15); White Blood Count 5.1 10^3/ul (3.5-10.8)
[2017-04-01 07:36] LABS: BUN/Creatinine Ratio 21.3 (8-20); EGFR African American 129.2 (>60); EGFR Non-African American 100.5 (>60); Globulin 3.1 g/dL (2-4); Potassium 4.3 mmol/L (3.5-5.0); Total Bilirubin 1.1 mg/dL (0.2-1.0); Total Protein 6.1 g/dL (6.4-8.9)
[2017-04-01 08:44] LABS: Folate 15.82 ng/mL (>3.99)
[2017-04-01] MEDS: Atenolol TAB* 25 MG PO SCH (09:12)
[2017-04-01] MEDS: Allopurinol TAB* 300 MG PO SCH (09:12)
[2017-04-01] MEDS: Aspirin EC Low Dose* 81 MG TAB.EC PO SCH (09:12)
[2017-04-01] MEDS: Docusate CAP* 100 MG PO SCH ×2 (09:12→20:13)
[2017-04-01] MEDS: Enoxaparin(*) 40 MG/0.4 ML SYR SUBCUT SCH (12:28)
[2017-04-01] MEDS: Albuterol HFA INHALER* 8 gm MDI INH PRN ×2 (13:39→21:11)
[2017-04-01] MEDS: Atorvastatin* 40 MG TAB PO SCH (17:08)
--- NOTE | 2017-04-01 17:34 | PN ---
Progress Note - Progress Note Date of Service: 04/01/17 Note: Eyad was visited. Therapy notes read and reviewed. Overall he seems to be doing fairly well without complaints. Current Medications Acetaminophen (Tylenol Tab*) 650 mg PO Q6H PRN PRN Reason: FEVER > 101 Al Hydrox/Mg Hydrox/Simethicone (Maalox Plus*) 30 ml PO Q6H PRN PRN Reason: INDIGESTION Albuterol (Ventolin Hfa Inhaler*) 2 puff INH Q4H PRN; Protocol PRN Reason: SOB/WHEEZING Last Admin: 04/01/17 13:39 Dose: 2 puff Allopurinol (Zyloprim Tab*) 300 mg PO DAILY [facility] Last Admin: 04/01/17 09:12 Dose: 300 mg Aspirin (Aspirin Ec Low Dose*) 81 mg PO DAILY [facility] Last Admin: 04/01/17 09:12 Dose: 81 mg Atenolol (Tenormin Tab*) 25 mg PO DAILY [facility] Last Admin: 04/01/17 09:12 Dose: 25 mg Atorvastatin Calcium (Lipitor*) 40 mg PO 1700 [facility] Last Admin: 04/01/17 17:08 Dose: 40 mg Bisacodyl (Dulcolax Supp*) 10 mg MA DAILY PRN PRN Reason: CONSTIPATION Docusate Sodium (Colace Cap*) 100 mg PO BID [facility] Last Admin: 04/01/17 09:12 Dose: 100 mg Enoxaparin Sodium (Lovenox(*)) 40 mg SUBCUT Q24H [facility] Last Admin: 04/01/17 12:28 Dose: 40 mg Guaifenesin/Dextromethorphan (Robitussin Dm*) 10 ml PO Q4H PRN PRN Reason: COUGH Last Admin: 03/31/17 13:28 Dose: 10 ml Magnesium Hydroxide (Milk Of Magnesia Liq*) 30 ml PO Q6H PRN PRN Reason: CONSTIPATION Omeprazole (Prilosec Cap*) 20 mg PO Q48H [facility] Last Admin: 04/01/17 05:24 Dose: 20 mg Senna (Senokot Tab*) 2 tab PO BEDTIME PRN PRN Reason: CONSTIPATION Laboratory Results - last 24 hr 04/01/17 04/01/17 07:06 07:06 WBC 5.1 RBC 3.10 L Hgb 11.2 L Hct 33 L MCV 106 H MCH 36 H MCHC 34 RDW 14 Plt Count 91 L MPV 8 Neut % (Auto) 42.8 Lymph % (Auto) 26.5 [place] % (Auto) 11.0 H Eos % (Auto) 18.5 H Baso % (Auto) 1.2 Absolute Neuts (auto) 2.2 Absolute Lymphs (auto) 1.3 Absolute Monos (auto) 0.6 Absolute Eos (auto) 0.9 H Absolute Basos (auto) 0.1 Absolute Nucleated RBC 0.01 Nucleated RBC % 0.1 Sodium 136 Potassium 4.3 Chloride 103 Carbon Dioxide 29 Anion Gap 4 BUN 16 Creatinine 0.75 Est GFR ( Amer) 129.2 Est GFR (Non-Af Amer) 100.5 BUN/Creatinine Ratio 21.3 H Glucose 94 Calcium 9.0 Iron 88 TIBC 283 % Saturation 31 Unsat Iron Binding 195 Total Bilirubin 1.10 H AST 21 ALT 16 Alkaline Phosphatase 72 Total Protein 6.1 L Albumin 3.0 L Globulin 3.1 Albumin/Globulin Ratio 1.0 Vitamin B12 1033 H Folate 15.82 Vital Signs Temp Pulse Resp BP Pulse Ox 97.2 F 64 18 142/70 100 04/01/17 15:28 04/01/17 15:28 04/01/17 15:57 04/01/17 15:28 04/01/17 15:57 EXAM: LUNGS: CTA Bilaterally HEART: reg rhythm ABDOMEN: Soft, +BS NEUROLOGIC: Alert, no real weakness, some discoordination ASSESSMENT/PLAN: 1. Right pontine CVA: PT/OT. ASA/Lipitor 2. Thrombocytopenia: Stable. Appears a chronic problem 3. HTN: Follow for now. Continue atenolol 4. DVT Prophylaxis: Lovenox 5. Advanced directives: Daughter, Ny, is HCP, full code
[2017-04-01] MEDS: GuaiFENesin DM* 5 ML UDC PO PRN (20:13)
[2017-04-02] MEDS: Aspirin EC Low Dose* 81 MG TAB.EC PO SCH (09:05)
[2017-04-02] MEDS: Allopurinol TAB* 300 MG PO SCH (09:05)
[2017-04-02] MEDS: Docusate CAP* 100 MG PO SCH ×2 (09:05→19:56)
[2017-04-02] MEDS: Atenolol TAB* 25 MG PO SCH (09:05)
[2017-04-02] MEDS: Albuterol HFA INHALER* 8 gm MDI INH PRN ×3 (09:06→20:14)
[2017-04-02] MEDS: GuaiFENesin DM* 5 ML UDC PO PRN ×2 (09:07→19:56)
--- NOTE | 2017-04-02 12:30 | PMRUTEAM ---
PMRU: Goals Current Status: Nursing: Current Status Skin Deviations [Left Knee] Bruise Skin Deviations [Left Hip] Bruise Skin Deviations [Left Elbow] Abrasion Skin Deviation Description [ Dressing changed Left Elbow] Bladder Current Status bladder-dribbling at baseline, CGA-Supervision Bowel Current Status continent, Last BM 03/31, taken bowel meds as prescribed Nutrition Current Status adequate Medication Current Status Supervision Physical Therapy: Current Status Bed Mobility Assistance Supervision Transfer Moblility Assistance Contact Guard Assist Transfer/Bed Mobility Rolling Walker Recommended Devices Ambulation Assistance Contact Guard Assist Ambulation Assistive Devices Rolling Walker Number of Feet Patient 300 x 4 Ambulated Stairs Assistance Supervision Stairs Recommended Devices Two Rails Number of Stairs 5 Occupational Therapy: Current Status Upper Body Dressing Contact Guard Assist Lower Body Dressing Contact Guard Assist,Min Assist Bathing Contact Guard Assist Toileting Contact Guard Assist Toilet Transfer Contact Guard Assist Shower Transfer Contact Guard Assist Rec Therapy: Current Status Summary of Assessment and RT assessment complete and pt. is aware of RT Clinical Impression services. Pt. identifies with interests and active involvement in them prior to admission. Pt . has leisure material in his room and is open to continued leisure visits. Treatment Goals Pt. will engage in leisure activities while on the unit. Treatment Plan Provide RT services and encourage involvement. Social Work: Current Status Discharge Plan return home with home care svs and family support Potential for Family Training pt's daughter is involved and supportive Anticipated Discharge Home Destination Anticipated Discharge Eyad's grandson is planning to stay with him at d / Destination Comment c Discharge With home care svs and family support Nutrition: Current Status Monitoring Pt s/p R pontine stroke and questionable L frontal lobe ischemia. Pt eating independently, consuming 75-100% of meals on heart healthy diet. Last BM 03/31. Labs & meds reviewed. No changes to current diet intervention to suggest; full nutrition assessment to follow per protocol. Goals: Physical Therapy: Initial Goals Bed Mobility Assistance Independent Transfer Mobility Assistance Independent Transfer/Bed Mobility Rolling Walker Recommended Devices Ambulation Independent Ambulation Recommended Devices Rolling Walker Ambulation Distance 300 Stairs Assistance Independent Stair Recommended Devices Two Rails Number of Stairs 10 Physical Therapy: Updated Goals Bed Mobility Assistance Independent Transfer Mobility Assistance Independent Transfer/Bed Mobility Rolling Walker Recommended Devices Ambulation Assistance Independent Ambulation Assistive Devices Rolling Walker Ambulation Distance (ft) 300 Stairs Assistance Independent Stairs Recommended Devices One Rail,Two Rails Number of Stairs 10 Occupational Therapy: Initial Goals Goals to be Completed in (Days 5-7 ) Upper Body Bathing Routine Independent Lower Body Bathing Routine Modified Independent with Upper Body Dressing Routine Independent Lower Body Dressing Routine Modified Independent with Toilet Hygeine and Clothing Modified Independent with Management Routine Toilet Transfer Routine Modified Independent with Tub Transfer Routine Modified Independent with Tub Trasnfer Assistive Devices tub transfer bench, Grab bars Functional Transfers for ADL Modified Independent with Grooming Routine Modified Independent with Feeding Routine Modified Independent with Light Housekeeping Tasks Minimal Contact Assist Nursing: Goals Bladder Goal independent care Bowel Goal Continent, regularity Nutrition Goal 100% Medication Goal independent. Nutrition: Goals Intervention Goals 1. Intake will remain adequate to maintain stable wt body wt 2. Pt will maintain regular bowel pattern without constipation (or diarrhea) Speech: Goals Speech Goal 1 Functional planning and problem solving Goal 1 Comments LTG: The patient will successfully complete ongoing assessment of functional, daily reading, writing, planning and problem solving tasks. Short-term objectives will be determined following ongoing assessment, if formal therapy is indicated. Social Work: Goals Discharge Plan return home with home care svs and family support Potential for Family Training pt's daughter is involved and supportive Anticipated Discharge Home Destination Anticipated Discharge Eyad's grandson is planning to stay with him at d / Destination Comment c Discharge With home care svs and family support Care Plan: Care Plan ADL's - Improve/Maintain Start: 04/01/17 16:07 Freq: DAILY Status: Active Target: Protocol: Activity Type Activity Date Activity User E-Sign Co-Sign Detail Recorded Client Recorded Date Recorded By Document 04/01/17 16:07 [id number] 04/01/17 16:08 [id number] 04/01/17 16:07 PMRU Outcome: ADL's/ADL Transfers Orders/Interventions Occupational Therapy Evaluation & Treatment Communication Tool in Patient Room Device Yes: FWW Address Deficits Secondary To: CVA Patient to receive OT 5x/wk for 60-120 Therex min/day Self Care Management Group Therapy Neuromuscular ReEducation UE/LE ADL's with Assist Yes: Gena ADL Transfers with Assist Yes: Gena Toileting: Transfers,Clothing Management Yes: Gena ,Hygeine w/Assist Light Kitchen/Laundry w/Assist Yes: Jesu Progression Toward Outcome/Goals Progressing Outcome/Goals Met Pt participated well in evaluation and pm treatment session, no LOB in either session this date, pt appears slightly fearful of falling, but participates well, pleasant and cooperative . Discharge Planning - Improve/Maintain Start: 04/01/17 16:36 Freq: DAILY Status: Active Target: Protocol: Activity Type Activity Date Activity User E-Sign Co-Sign Detail Recorded Client Recorded Date Recorded By Document 04/02/17 10:19 [id number] 04/02/17 10:19 [id number] 04/02/17 10:19 PMRU Outcome: Discharge Planning Identify Patient Needs yes Update Patient Family No Outcome/Goals Demonstrates Understanding of Discharge Plan Progression Toward Outcome/Goals Progressing Education-Improve/Maintain Start: 04/01/17 16:36 Freq: DAILY Status: Active Target: Protocol: Activity Type Activity Date Activity User E-Sign Co-Sign Detail Recorded Client Recorded Date Recorded By Document 04/02/17 10:19 [id number] 04/02/17 10:19 [id number] 04/02/17 10:19 PMRU Outcome: Education Outcome/Goals Demonstrate/ Verbalize Understanding of Written Discharge Instructions Encourage Questions Progression Toward Outcome/Goals Progressing Respiratory - Improve/Maintain Start: 04/01/17 16:36 Freq: DAILY Status: Active Target: Protocol: Activity Type Activity Date Activity User E-Sign Co-Sign Detail Recorded Client Recorded Date Recorded By Document 04/02/17 10:19 [id number] 04/02/17 10:19 [id number] 04/02/17 10:19 PMRU Outcome: Respiratory Does Patient Have a Trach No Outcome/Goals Maintain/ Improve O2 Sat per MD Order Maintain/ Improve Activity Tolerance Progression Toward Outcome/Goals Progressing Safety- Improve/Maintain Start: 04/01/17 16:36 Freq: DAILY Status: Active Target: Protocol: Activity Type Activity Date Activity User E-Sign Co-Sign Detail Recorded Client Recorded Date Recorded By Document 04/02/17 10:19 [id number] 04/02/17 10:19 [id number] 04/02/17 10:19 PMRU Outcome: Safety Outcome/Goals Remain Free of Injury or Harm Cooperates with Safety Measures for Least Restrictive Environment Prevent Falls/ Injury Progression Toward Outcome/Goals Progressing Medicine Note: Length of Stay: 4 days Anticipated Discharge Destination: Home Tentative Discharge Date: 04/06/17 Discharged to: home
[2017-04-02] MEDS: Enoxaparin(*) 40 MG/0.4 ML SYR SUBCUT SCH (12:54)
[2017-04-02] MEDS: Atorvastatin* 40 MG TAB PO SCH (16:51)
--- NOTE | 2017-04-02 17:26 | PN ---
Progress Note - Progress Note Date of Service: 04/02/17 Note: Eyad visited. He was discussed in interdisciplinary team rounds. He seems to be doing well although he needs a little better balance when he walks. Current Medications Acetaminophen (Tylenol Tab*) 650 mg PO Q6H PRN PRN Reason: FEVER > 101 Al Hydrox/Mg Hydrox/Simethicone (Maalox Plus*) 30 ml PO Q6H PRN PRN Reason: INDIGESTION Albuterol (Ventolin Hfa Inhaler*) 2 puff INH Q4H PRN; Protocol PRN Reason: SOB/WHEEZING Last Admin: 04/02/17 12:55 Dose: 2 puff Allopurinol (Zyloprim Tab*) 300 mg PO DAILY [facility] Last Admin: 04/02/17 09:05 Dose: 300 mg Aspirin (Aspirin Ec Low Dose*) 81 mg PO DAILY [facility] Last Admin: 04/02/17 09:05 Dose: 81 mg Atenolol (Tenormin Tab*) 25 mg PO DAILY [facility] Last Admin: 04/02/17 09:05 Dose: 25 mg Atorvastatin Calcium (Lipitor*) 40 mg PO 1700 [facility] Last Admin: 04/02/17 16:51 Dose: 40 mg Bisacodyl (Dulcolax Supp*) 10 mg [place] DAILY PRN PRN Reason: CONSTIPATION Docusate Sodium (Colace Cap*) 100 mg PO BID [facility] Last Admin: 04/02/17 09:05 Dose: 100 mg Enoxaparin Sodium (Lovenox(*)) 40 mg SUBCUT Q24H [facility] Last Admin: 04/02/17 12:54 Dose: 40 mg Guaifenesin/Dextromethorphan (Robitussin Dm*) 10 ml PO Q4H PRN PRN Reason: COUGH Last Admin: 04/02/17 09:07 Dose: 10 ml Magnesium Hydroxide (Milk Of Magnesia Liq*) 30 ml PO Q6H PRN PRN Reason: CONSTIPATION Omeprazole (Prilosec Cap*) 20 mg PO Q48H [facility] Last Admin: 04/01/17 05:24 Dose: 20 mg Senna (Senokot Tab*) 2 tab PO BEDTIME PRN PRN Reason: CONSTIPATION Vital Signs Temp Pulse Resp BP Pulse Ox 97.6 F 63 20 136/76 98 04/02/17 16:27 04/02/17 16:45 04/02/17 16:48 04/02/17 16:45 04/02/17 16:59 EXAM: LUNGS: CTA Bilaterally HEART: reg rhythm ABDOMEN: Soft, +BS NEUROLOGIC: Alert, no real focal weakness, noted discoordination ASSESSMENT/PLAN: 1. Right pontine CVA: PT/OT. ASA/Lipitor 2. Thrombocytopenia: Stable. Appears a chronic problem 3. HTN: Follow for now. Continue atenolol 4. DVT Prophylaxis: Lovenox 5. Advanced directives: DaughterNy, is HCP, full code
[2017-04-03] MEDS: Omeprazole CAP* 20 MG PO SCH (05:34)
[2017-04-03] MEDS: Docusate CAP* 100 MG PO SCH ×2 (07:29→20:44)
[2017-04-03] MEDS: Atenolol TAB* 25 MG PO SCH (07:29)
[2017-04-03] MEDS: Allopurinol TAB* 300 MG PO SCH (07:29)
[2017-04-03] MEDS: Aspirin EC Low Dose* 81 MG TAB.EC PO SCH (07:29)
[2017-04-03] MEDS: Albuterol HFA INHALER* 8 gm MDI INH PRN ×2 (09:47→18:35)
[2017-04-03] MEDS: Enoxaparin(*) 40 MG/0.4 ML SYR SUBCUT SCH (12:55)
[2017-04-03] MEDS: Atorvastatin* 40 MG TAB PO SCH (17:24)
--- NOTE | 2017-04-03 19:18 | PN ---
Progress Note - Progress Note Date of Service: 04/03/17 Note: Eyad visited. Therapy notes read and reviewed. He has a wheeze which he and his daughter say started a year ago. He has had a work up but cause is unknown. Inhaler seems to help. Sats are good. Current Medications Acetaminophen (Tylenol Tab*) 650 mg PO Q6H PRN PRN Reason: FEVER > 101 Al Hydrox/Mg Hydrox/Simethicone (Maalox Plus*) 30 ml PO Q6H PRN PRN Reason: INDIGESTION Albuterol (Ventolin Hfa Inhaler*) 2 puff INH Q4H PRN; Protocol PRN Reason: SOB/WHEEZING Last Admin: 04/03/17 18:35 Dose: 2 puff Allopurinol (Zyloprim Tab*) 300 mg PO DAILY [facility] Last Admin: 04/03/17 07:29 Dose: 300 mg Aspirin (Aspirin Ec Low Dose*) 81 mg PO DAILY [facility] Last Admin: 04/03/17 07:29 Dose: 81 mg Atenolol (Tenormin Tab*) 25 mg PO DAILY [facility] Last Admin: 04/03/17 07:29 Dose: 25 mg Atorvastatin Calcium (Lipitor*) 40 mg PO 1700 [facility] Last Admin: 04/03/17 17:24 Dose: 40 mg Bisacodyl (Dulcolax Supp*) 10 mg [place] DAILY PRN PRN Reason: CONSTIPATION Docusate Sodium (Colace Cap*) 100 mg PO BID [facility] Last Admin: 04/03/17 07:29 Dose: 100 mg Enoxaparin Sodium (Lovenox(*)) 40 mg SUBCUT Q24H [facility] Last Admin: 04/03/17 12:55 Dose: 40 mg Guaifenesin/Dextromethorphan (Robitussin Dm*) 10 ml PO Q4H PRN PRN Reason: COUGH Last Admin: 04/02/17 19:56 Dose: 10 ml Magnesium Hydroxide (Milk Of Magnesia Liq*) 30 ml PO Q6H PRN PRN Reason: CONSTIPATION Omeprazole (Prilosec Cap*) 20 mg PO Q48H [facility] Last Admin: 04/03/17 05:34 Dose: 20 mg Senna (Senokot Tab*) 2 tab PO BEDTIME PRN PRN Reason: CONSTIPATION Vital Signs Temp Pulse Resp BP Pulse Ox 97.7 F 70 20 146/77 95 04/03/17 15:18 04/03/17 15:18 04/03/17 16:38 04/03/17 15:18 04/03/17 16:39 EXAM: LUNGS: Scattered Wheezes Bilaterally, bit seem to be upper airway HEART: reg rhythm ABDOMEN: Soft, +BS NEUROLOGIC: Alert, no real focal weakness, noted discoordination ASSESSMENT/PLAN: 1. Right pontine CVA: PT/OT. ASA/Lipitor 2. Thrombocytopenia: Stable. Appears a chronic problem 3. HTN: Follow for now. Continue atenolol 4. DVT Prophylaxis: Lovenox 5. Advanced directives: Daughter, [place], is HCP, full code 6. Wheezing: etiology unclear. Continue albuerol HFA.
[2017-04-03] MEDS: Mometasone/Formoter 100/5 MDI INH SCH (20:45)
[2017-04-04] MEDS: Aspirin EC Low Dose* 81 MG TAB.EC PO SCH (08:29)
[2017-04-04] MEDS: Atenolol TAB* 25 MG PO SCH (08:29)
[2017-04-04] MEDS: Docusate CAP* 100 MG PO SCH ×2 (08:29→20:50)
[2017-04-04] MEDS: Mometasone/Formoter 100/5 MDI INH SCH ×2 (08:30→20:49)
[2017-04-04] MEDS: Allopurinol TAB* 300 MG PO SCH (08:31)
[2017-04-04] MEDS: Enoxaparin(*) 40 MG/0.4 ML SYR SUBCUT SCH (13:02)
[2017-04-04] MEDS: Atorvastatin* 40 MG TAB PO SCH (17:07)
--- NOTE | 2017-04-04 17:30 | PN ---
Progress Note - Progress Note Date of Service: 04/04/17 Note: Eyad visited. Therapy notes read and reviewed. He will be discharged tomorrow. The Dulera seems to have helped with his wheezing a great deal. He should continue the Dulera at discharge. He has a rash over left hand and a small area of erythema near where he has a small laceration when he fell. I will start Keflex. Current Medications Acetaminophen (Tylenol Tab*) 650 mg PO Q6H PRN PRN Reason: FEVER > 101 Al Hydrox/Mg Hydrox/Simethicone (Maalox Plus*) 30 ml PO Q6H PRN PRN Reason: INDIGESTION Albuterol (Ventolin Hfa Inhaler*) 2 puff INH Q4H PRN; Protocol PRN Reason: SOB/WHEEZING Last Admin: 04/03/17 18:35 Dose: 2 puff Allopurinol (Zyloprim Tab*) 300 mg PO DAILY [facility] Last Admin: 04/04/17 08:31 Dose: 300 mg Aspirin (Aspirin Ec Low Dose*) 81 mg PO DAILY [facility] Last Admin: 04/04/17 08:29 Dose: 81 mg Atenolol (Tenormin Tab*) 25 mg PO DAILY [facility] Last Admin: 04/04/17 08:29 Dose: 25 mg Atorvastatin Calcium (Lipitor*) 40 mg PO 1700 [facility] Last Admin: 04/04/17 17:07 Dose: 40 mg Bisacodyl (Dulcolax Supp*) 10 mg [place] DAILY PRN PRN Reason: CONSTIPATION Docusate Sodium (Colace Cap*) 100 mg PO BID [facility] Last Admin: 04/04/17 08:29 Dose: 100 mg Enoxaparin Sodium (Lovenox(*)) 40 mg SUBCUT Q24H [facility] Last Admin: 04/04/17 13:02 Dose: 40 mg Guaifenesin/Dextromethorphan (Robitussin Dm*) 10 ml PO Q4H PRN PRN Reason: COUGH Last Admin: 04/02/17 19:56 Dose: 10 ml Magnesium Hydroxide (Milk Of Magnesia Liq*) 30 ml PO Q6H PRN PRN Reason: CONSTIPATION Mometasone Furoate/Formoterol Fumar (Dulera 100/5 Mdi*) 2 puff INH BID [facility] Last Admin: 04/04/17 08:30 Dose: 2 puff Omeprazole (Prilosec Cap*) 20 mg PO Q48H [facility] Last Admin: 04/03/17 05:34 Dose: 20 mg Senna (Senokot Tab*) 2 tab PO BEDTIME PRN PRN Reason: CONSTIPATION Vital Signs Temp Pulse Resp BP Pulse Ox 97.2 F 68 16 149/65 98 04/04/17 15:42 04/04/17 15:42 04/04/17 15:42 04/04/17 15:42 04/04/17 15:42 EXAM: LUNGS: Expiratory Wheezes Bilaterally HEART: reg rhythm ABDOMEN: Soft, +BS NEUROLOGIC: Alert, no real focal weakness, noted discoordination ASSESSMENT/PLAN: 1. Right pontine CVA: PT/OT. ASA/Lipitor 2. Thrombocytopenia: Stable. Appears a chronic problem 3. HTN: Follow for now. Continue atenolol. Resume Lasix. 4. DVT Prophylaxis: Lovenox 5. Advanced directives: Daughter, [place], is HCP, full code 6. Wheezing: etiology unclear. Continue Dulera and albuerol HFA.
[2017-04-05] MEDS: Omeprazole CAP* 20 MG PO SCH (05:32)
[2017-04-05] MEDS: Atenolol TAB* 25 MG PO SCH (07:57)
[2017-04-05] MEDS: Aspirin EC Low Dose* 81 MG TAB.EC PO SCH (07:57)
[2017-04-05] MEDS: Allopurinol TAB* 300 MG PO SCH (07:57)
[2017-04-05] MEDS: Docusate CAP* 100 MG PO SCH (07:57)
[2017-04-05] MEDS: Mometasone/Formoter 100/5 MDI INH SCH (07:59)
[2017-04-05] MEDS ORDERED: Furosemide TAB* 20 MG PO SCH (09:00)
[2017-04-05] MEDS: Enoxaparin(*) 40 MG/0.4 ML SYR SUBCUT SCH (12:03)
[2017-04-05 15:52] VITALS: BP 134/76
[2017-04-05] MEDS: Atorvastatin* 40 MG TAB PO SCH (16:56)
--- NOTE | 2017-04-06 23:13 | DS ---
CC: Dr. Bladimir Austin * DISCHARGE SUMMARY: DATE OF ADMISSION: 03/31/17 DATE OF DISCHARGE: 04/05/17 DISCHARGE DIAGNOSES: 1. Right pontine stroke. 2. Probable chronic obstructive pulmonary disease. 3. Hypertension. 4. Peptic ulcer disease. 5. 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 HISTORY OF ILLNESS AND HOSPITAL COURSE: For complete history of the events leading up to his rehab stay, please see the history and physical dictated by Dr. Sarita Ren on 03/31/17. While on the rehab unit, the patient remained fairly stable from a medical point of view. He did have audible wheezing noted, expiratory more so than inspiratory. He had already been on an albuterol inhaler, which was started by his primary care doctor. He had an inhaled corticosteroid added to his medication regimen, Dulera. This was very successful in alleviating his symptoms. Other than that, the patient was medically stable. He worked with Physical Therapy and Occupational Therapy while in the rehab unit. He made good gains with both disciplines. With physical therapy at the time of admission, the patient required contact guard to min assist to do a transfer. He was able to ambulate 300 feet with min assist. He had notable loss of imbalance. With occupational therapy at the time of admission, the patient required contact guard for dressing, contact guard for bathing, contact guard for toileting, toilet transfers with contact guard. By the time of discharge, he could ambulate 300 feet independently, independent going up and down 10 steps, independent with all of his activities of daily living. He was discharged home on 04/05/17. DISCHARGE DIET: Regular. DISCHARGE MEDICATIONS: 1. Albuterol HFA inhaler 2 puffs every 4 hours as needed. 2. Allopurinol 300 mg daily. 3. Aspirin 81 mg daily. 4. Lipitor 40 mg daily. 5. Symbicort 160/4.5 one puff twice a day. 6. Lasix 20 mg daily. 7. Omeprazole 20 mg every 48 hours. 8. Atenolol 25 mg daily. SERVICES AFTER DISCHARGE: Through [facility]. He will have home nursing, home physical therapy, and a home health aide. He will also follow up with his new primary care doctor, Dr. Bladimir Austin. [id number]/[facility] #: [id number] [facility]
== END 2017-04-05 17:45 | disposition home health service (06) | DRG 57 ==
LOC: PMRU 11:40
PROVIDERS: ADMIT Physical Medicine & Rehabilitation; ATTEND Physical Medicine & Rehabilitation
PROC: F07Z5ZZ Bed Mobility Treatment (ICD-10-PCS; principal; 2017-03-31)
PROC: F07Z9ZZ Gait Training/Functional Ambulation Treatment (ICD-10-PCS; 2017-03-31)
PROC: F07Z8ZZ Transfer Training Treatment (ICD-10-PCS; 2017-03-31)
PROC: F08Z0ZZ Bathing/Showering Techniques Treatment (ICD-10-PCS; 2017-03-31)
PROC: F08Z1ZZ Dressing Techniques Treatment (ICD-10-PCS; 2017-03-31)
DX: I69.354 Hemiplegia and hemiparesis following cerebral infarction affecting left non-dominant side (principal); D69.6 Thrombocytopenia, unspecified; D64.9 Anemia, unspecified; J44.9 Chronic obstructive pulmonary disease, unspecified; I10 Essential (primary) hypertension; K27.9 Peptic ulcer, site unspecified, unspecified as acute or chronic, without hemorrhage or perforation; H54.40 Blindness, one eye, unspecified eye; M10.9 Gout, unspecified; Z79.1 Long term (current) use of non-steroidal anti-inflammatories (NSAID); Z79.82 Long term (current) use of aspirin; Z79.899 Other long term (current) drug therapy; Z80.3 Family history of malignant neoplasm of breast; F17.220 Nicotine dependence, chewing tobacco, uncomplicated
CPT/HCPCS: 36415; 80053; 82607; 82746; 83540; 83550; 85025; A9270-GY; J1650

== ENCOUNTER 2017-08-28 20:37 | Inpatient (IN) | payer MEDICARE, BC ==
[2017-08-28] MEDS ORDERED: Albuterol/Ipratropium NEB.SOL* Albuterol 2.5 MG/Ipratropium 0.5 MG 3 ML INH ONE (21:32)
[2017-08-28] MEDS ORDERED: NS 0.9% 1000 ML* 1,000 ML IV ONE ×3 (21:32→23:57)
--- NOTE | 2017-08-28 21:54 | RAD ---
HISTORY: Weakness COMPARISONS: December 17, 2016 VIEWS: 1: frontal portable view of the chest at 9:43 PM FINDINGS: LINES AND TUBES: None. CARDIOMEDIASTINAL SILHOUETTE: The cardiomediastinal silhouette is normal for portable technique. PLEURA: The costophrenic angles are sharp. No pleural abnormalities are noted. LUNG PARENCHYMA: The lungs are clear. ABDOMEN: The upper abdomen is clear. There is no subphrenic gas. BONES AND SOFT TISSUES: No bone or soft tissue abnormalities are noted. IMPRESSION: NO ACTIVE CARDIOPULMONARY DISEASE.
[2017-08-28 22:40] LABS: INR 1.04 (0.77-1.02)
[2017-08-28 22:42] LABS: EGFR Non-African American 9.9 (>60)
[2017-08-28 23:11] LABS: Urine Appearance Cloudy; Urine Blood 3+ (Negative); Urine Color Amber; Urine Ketones Negative (Negative); Urine Protein 2+(100 mg/dL) (Negative); Urine Specific Gravity 1.018 (1.010-1.030); Urine Urobilinogen Negative (Negative)
[2017-08-28] MEDS: Albuterol 2.5 MG/3 ML NEB.SOL* (0.083%) INH SCH ×2 (23:11)
[2017-08-28] MEDS: Levofloxacin 500 MG IVPREMIX(* 500 MG/100 ML BAG IVPB ONE ×2 (23:21→23:22)
[2017-08-28] MEDS ORDERED: Ondansetron ODT TAB* 4 MG SL PRN (23:43)
[2017-08-28] MEDS ORDERED: cefTRIAXone(*) 1 GM ADVAN/BAG ONE (23:44)
[2017-08-28] MEDS ORDERED: NS 0.9% 1000 ML* 1,000 ML IV SCH (23:45)
[2017-08-28 23:47] LABS: Hematocrit 44 % (42-52); Hemoglobin 14.7 g/dl (14.0-18.0); Mean Corpuscular HGB Conc 34 g/dl (31-36); Mean Corpuscular Hemoglobin 34 pg (27-31); Mean Corpuscular Volume 102 fL (80-94); Platelet Count 140 10^3/ul (150-450); Red Blood Count 4.29 10^6/ul (4.0-5.4); Red Cell Distribution Width 18 % (10.5-15)
[2017-08-28] MEDS: cefTRIAXone(*) 1 GM in NS 0.9% 50 ML* 50 ML IVPB SCH (23:50)
[2017-08-28 23:52] LABS: Urine Appearance Cloudy; Urine Blood 3+ (Negative); Urine Color Amber; Urine Ketones Negative (Negative); Urine Protein 2+(100 mg/dL) (Negative); Urine Specific Gravity 1.018 (1.010-1.030); Urine Urobilinogen Negative (Negative)
[2017-08-29 00:10] LABS: Monocytes % 7 % (0-7)
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
[2017-08-29] MEDS: metroNIDAZOLE IV 500 MG/100ML* 500 MG/100 ML BAG IVPB SCH ×3 (01:28→17:57)
[2017-08-29] MEDS ORDERED: PROCHLORPERAZINE INJ 5 MG/ML 2 ML VIAL IV PRN (01:40)
[2017-08-29] MEDS ORDERED: fentaNYL* 50 MCG/ML 2 ML VIAL (100 MCG VIAL) ONE (04:26)
[2017-08-29] MEDS ORDERED: Etomidate* 2 MG/ML 10 ML VIAL ONE (04:26)
[2017-08-29] MEDS ORDERED: Atracurium* 10 MG/ML 10 ML VIAL ONE (04:26)
[2017-08-29] MEDS ORDERED: Succinylcholine* 20 MG/ML 10 ML VIAL ONE (04:26)
--- NOTE | 2017-08-29 04:33 | CONS ---
CC: Dr. Emanuel Gary; [facility] * SURGICAL CONSULTATION REPORT: DATE OF CONSULT: 08/29/17 HISTORY OF PRESENT ILLNESS: I was called to consult on Mr. Lee, an 82-year -old gentleman who presented to the emergency room with complaints of not feeling well for 10 days, decreased appetite, vomiting and overall weakness. The patient had not been feeling himself for quite sometime and the patient's daughter felt that he was not urinating, took him to Urology earlier this week, and underwent placement of a Mc catheter for the concern of obstructive urinary symptoms. Despite this, the patient continued to feel weak overall. In the emergency room, the patient underwent labs and creatinine of 5.6 representing a sharp increase from 1.56 earlier in the week, which was normal just in June of this year. For this reason, the patient was admitted with acute renal failure. He was started on antibiotics for concern for UTI. On examination by the hospitalist service, he was felt to have significant abdominal pain and was sent for a CAT scan noncontrast study. These images as well as the report were reviewed in the overnight. Concern was for high-grade small bowel obstruction with suspected bowel ischemia as indicated by scattered pneumatosis. When I come to see the patient, his chief complaint seems to be fatigue and not being able to eat. Of note, the patient had lost a significant amount of weight over the course of the last year. His last bowel movement was Saturday. He endorses obstipation at this time. PAST MEDICAL HISTORY: Includes hypertension, hypercholesterolemia, GERD, and questionable gout. PAST SURGICAL HISTORY: Includes partial colectomy and colostomy with reversal in the 1970s. HOME MEDICATIONS: Reviewed. ALLERGIES: He has no known drug allergies. SOCIAL HISTORY: He lives alone. His family checks him regularly. He drinks about 2 beers a night, but has not had one in about 2 weeks. REVIEW OF SYSTEMS: No fevers or chills. Nausea and vomiting as described. No appetite. Weight loss as described. Low urine output. No history of urinary insufficiency in the past. No bleeding or clotting disorders. PHYSICAL EXAM: He is afebrile, blood pressure 117/53, heart rate 70, O2 sat 90 , respirations are 24. He is alert and oriented x3. He is in mild distress. Head, ears, eyes, nose and throat: Normocephalic. Right eye enucleation. Mucous membranes are dry. Neck: No lymphadenopathy. Abdomen is soft with voluntary guarding. Tenderness diffusely on deep palpation. Tender to percussion, but no rebound tenderness. Surgical scar is appreciated. No hernia is noted. No skin changes. Extremities: Within normal limits. DIAGNOSTIC STUDIES/LAB DATA: Labs reviewed, show white count of 7 with bands of 22, platelet count of 140. Chemistry panel shows an elevated CRP of 125, elevated lactate 3.4, albumin of 3.1. Chest x-ray report was within normal limits. CT scan, described above. IMPRESSION: An 82-year-old gentleman who normally looks after himself, who up until today could at least do some activities, now in distress with involuntary guarding on abdominal exam. Concerning CT scan as well as bandemia and lactate suggested that additional workup would include a trip to the OR to rule out bowel ischemia. Differential diagnoses does include renal failure, secondary abdominal pain, partial small bowel obstruction, malignancy. I described the patient and his daughter my recommendation of exploratory laparotomy to rule out some of these diagnoses that we might be able to treat, discussing the possibility that the patient might not have any abdominal process or the possibility that the patient may have diffuse ischemia of the small intestine in which case, we would not look towards any resection. I discussed the possibility of resection with primary anastomosis as well as the possibility of ileostomy. The patient and the patient's daughter understand that he is ill and we may not get any answers from our trip to the operating room, but do consent. He has already received antibiotics and IV fluids. A Mc catheter is in place. An NG tube has recently been placed with significant brownish foul -smelling output. The patient will most likely remain intubated postoperatively and go to the ICU for ICU care. [id number]/[facility] #: [id number] [facility]
[2017-08-29] MEDS ORDERED: Fluorescein 10% INJ* 100 MG/ML AMP ONE (05:03)
[2017-08-29] MEDS ORDERED: Phenylephrine INJ* 10 MG/ML 1 ML VIAL (10 MG) ONE (06:10)
--- NOTE | 2017-08-29 06:20 | HP ---
CC: Dr. Gary; Dr. Faulkner * HISTORY AND PHYSICAL: DATE OF ADMISSION: 08/29/17 PRIMARY CARE PROVIDER: Dr. Gary. ATTENDING PHYSICIAN WHILE IN THE HOSPITAL: Dionna Holland DO * (report dictated by Jakob Sims NP). CHIEF COMPLAINT: 1. Weakness. 2. Confusion. HISTORY OF PRESENTING ILLNESS: Ms. Lee is an 82-year-old male patient. He has a history of diverticulitis, hypertension, gout, peptic ulcer disease and a history of a stroke in the past. He comes into our ER today. The daughter has noted that the last couple of weeks he has had progressive worsening decline, particularly with weakness, fatigue, not eating. He has been having epigastric type discomfort and having dry heaves and at times is vomiting up small amounts of liquid. The patient does state that he is having some epigastric pain, which he has had in the last couple of weeks. He denied any diarrhea. Denies having any cold symptoms. Denies having a cough. He denies feeling anymore short of breath. He did state that he brought to his daughter's attention that he had difficulty for the last week and a half passing urine. He alerted his daughter and he was evaluated by Dr. 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 His creatinine was 1.6 at that point. Catheter was placed, but despite this today it was really noted by family that he was very weak. He lost his keys, he could not find them. He basically got locked out of his house. He sat on a bench until his sister came by and found him sitting on a bench behind his house. They alerted the daughter and the grandson, both of who eventually came to his aid and they got him inside, but it was noted that he was weak and could not really stand him up, it was requiring all their effort to get him up. They noticed that he appeared to be more confused than his baseline. At his baseline, the daughter states he is pretty sharp and he is oriented x3. She was concerned because he just had this worsening decline, so she had opted to bring him into the hospital tonight. He did sit outside for about 6 hours in the sun today in the heat and he really has not been eating or drinking. He denies taking any NSAIDs. Denies having any recent changes in medications, especially he has recently been started on Prilosec in addition to his Proscar. The patient came in to the ED today. It was noted that his creatinine had gotten much worse. He appeared to be in worsening renal failure. He appeared to have UTI. We were asked to evaluate for admission. PAST MEDICAL HISTORY: Significant for: 1. Diverticulitis. 2. Hypertension. 3. Gout. 4. Peptic ulcer disease. 5. CVA. PAST SURGICAL HISTORY: 1. The patient has had a partial colectomy. 2. Hernia repair. 3. Cataract extraction. 4. He has had eye surgeries. HOME MEDICATIONS: Include: 1. Proscar 5 mg daily. 2. Famotidine 20 mg p.o. b.i.d. before meals as needed. 3. Symbicort 2 puffs inhaled b.i.d. 4. Allopurinol 300 mg daily. 5. Lisinopril 5 mg daily. 6. Lasix 20 mg p.o. daily. 7. Aspirin 81 mg daily. 8. Atorvastatin 40 mg daily. ALLERGIES TO MEDICATIONS: Include no known drug allergies. FAMILY HISTORY: The mother of old age. Father's history is unknown. Father when the patient was 4. SOCIAL HISTORY: He does live with his grandson. Surrogate decision maker is the daughter. He is a nonsmoker, nondrinker. REVIEW OF SYSTEMS: There is no documented fever. He denies any significant weight change. No double vision. No ear discharge. There is no rhinorrhea. No sore throat. No thyroid enlargement. He denies having any chest pain. There is no orthopnea, nocturnal dyspnea. There is no abdominal pain. There is no dysuria. No frequency. No seizure. No loss of consciousness. No pruritus. No skin ulcerations. Review of 14 systems completed, all others negative. PHYSICAL EXAMINATION GENERAL: At this time, Mr. Lee is an 82-year-old male patient. He is sitting in the ED stretcher. He does not appear to be in any acute distress. VITAL SIGNS: Blood pressure 127/57, pulse 62, respirations 20, O2 sat 90% on 2 L and his temperature was 98.3. HEENT: Head: Atraumatic, normocephalic. Eyes: EOMs are intact. Sclerae anicteric, not pale. NECK: Supple. Throat: Oral mucosa appears to be moist. No oropharyngeal erythema. LUNGS: Clear to auscultation. No wheezes, rales, or rhonchi. HEART: Sounds S1, S2. Regular rate and rhythm. No murmurs, rubs or gallops. ABDOMEN: Soft, flat, nontender. Bowel sounds are present. EXTREMITIES: Pulses are 2+ throughout. He is moving all 4 extremities with 5/ 5 strength. NEUROLOGICAL: The patient is awake. He is alert. He is oriented x3. His speech is clear. Tongue midline. He had no gross focal deficits. SKIN: Intact. DIAGNOSTIC STUDIES/LAB DATA: WBC of 7.0, RBC of 4.29, hemoglobin of 14.7, hematocrit of 44, and platelet count of 140,000. INR 1.04, PTT 24.8. Sodium 140, potassium 3.7, chloride 91, bicarb 80. His creatinine today is 5.58, his BUN is 80; his last creatinine was 1.65 and prior to that it was 0.7 to 0.8. His glucose 116, lactic 3.4, calcium 8.5. Total bili 0.6, AST 69, ALT 70, alk phos 64. Troponin 0.03. CRP 124, albumin of 3.1. Urine showed 2+ protein, 3+ blood, 3+ RBC's, 3+ WBC's, 3+ leukocyte esterase, present bacteria. He did have a chest x-ray obtained today, which read no active disease. He did have an EKG obtained today, which showed a normal sinus rhythm with a rate of 62. He had no ST elevations or T-wave inversions noted at this point. Old medical records were reviewed. ASSESSMENT AND PLAN: Mr. Lee is an 82-year-old male patient coming into the ED today with complaints of weakness and confusion, and on evaluation found to be in worsening acute renal failure. He will be admitted under inpatient status for: 1. Weakness. I suspect this is probably due in part to urinary tract infection in addition to this him being in acute renal failure and probably some uremia and possibly dehydration. My plan will be to hydrate the patient, hold nephrotoxic agents, treat the urinary tract infection and continue with supportive care. 2. Acute renal failure. This is perplexing. I am going to get a FENa. He is not taking NSAIDs. I am going to hold the lisinopril and Lasix. It could be prerenal. I will get a CT of the abdomen and pelvis to look for any obstructive uropathy as he has been having some epigastric discomfort and Dr. Faulkner has been contacted by the ED, he will be evaluating the patient tomorrow. I will go ahead and again hydrate him, follow his labs and continue to monitor. He does not have a need for emergent dialysis at this point. 3. Lactic acidosis. It could be secondary to dehydration, but he does have urinary tract infection, he does not appear to be septic, but I will hydrate him and repeat this. 4. History of hypertension. I am going to hold his lisinopril. 5. History of cerebrovascular accident. Continue his aspirin and statin therapy. 6. Gout. I am holding the allopurinol. 7. Peptic ulcer disease. P.r.n. famotidine has been ordered. 8. DVT prophylaxis. He will be placed on heparin subcu. 9. Code status. He wishes to be a DNR at this point. 10. Fluids, electrolytes and nutrition. He can have a renal diet. TIME SPENT: On the admission was 60 minutes, greater than half the time was spent [id number] with the patient obtaining my history and physical, other half of the time was spent going over the plan of care with the patient and implementing the plan of care. I discussed the plan of care with my attending, Dr. Holland, she is in agreement. JAKOB SIMS, EDUARDA [id number]/[facility] #: [id number] JULIETTE
--- NOTE | 2017-08-29 06:27 | BRIEFOPN ---
Brief Operative Note - Surgery Procedures: Procedures Pre-OP Diagnoses: acute abdomen, SBO Post-op Diagnosis: Internal hernia Procedure: Exploratory laparotomy, KAYCEE, reduction of internal hernia Surgeon: Gracie Asst: none Anethesia: FRANCISCOA Sanito EBL: 20cc IVF: 4100cc LR Specimen: none Drains: none Pt remained intubated and transferred to ICU in critical condition
[2017-08-29] MEDS ORDERED: fentaNYL PCA* 20 ML PCA SCH (07:00)
[2017-08-29] MEDS ORDERED: Midazolam IV for DRIP* 100 MG in NS 0.9% 100 ML* 80 ML IV SCH (07:30)
[2017-08-29] MEDS: Mometasone/Formoter 200/5 MDI INH SCH ×2 (07:36→20:14)
--- NOTE | 2017-08-29 07:38 | RAD ---
INDICATION: Acute renal failure. Epigastric pain COMPARISON: None TECHNIQUE: Noncontrast axial source images were acquired from the level hemidiaphragms to the symphysis pubis pubis. There are inherent limitations due to lack of oral and intravenous contrast. Intravenous contrast was not given due to acute renal. Lung bases: There are emphysematous changes in lung bases. Liver: The liver is normal in size. Noncontrast imaging shows no evidence of a hepatic mass or ductal dilatation. There is portal venous air which can be seen with ischemic bowel. Gallbladder: The gallbladder is not well visualized. Spleen: The spleen is normal in size. The noncontrast CT appearance is normal. Pancreas: There is limited evaluation of pancreas which appears atrophic. Adrenal glands: No masses are identified. Kidneys/Bladder: There is no evidence of nephrolithiasis or CT evidence of hydronephrosis. Noncontrast imaging shows no evidence of a renal mass. The bladder is decompressed by Mc catheter.. Adenopathy: There is no evidence of intraperitoneal or retroperitoneal adenopathy. Evaluation is limited without oral contrast. Fluid collections: There are no free or localized fluid collections. Vessels: There are atherosclerotic changes of the aorta and iliac vessels. There is no focal aneurysm. The IVC appears normal Pelvic organs: The prostate is enlarged GI tract: Evaluation of the bowel is limited without oral contrast. The stomach is distended and fluid and debris filled. The proximal small bowel is distended measuring up to 4.5 cm. There is a small amount of pneumatosis. The distal small bowel is decompressed. The colon is normal in caliber. Soft tissues: No soft tissue abnormalities of the extraperitoneal abdomen or pelvis are identified. Osseous structures: There are no acute osseous findings. There are advanced osteoarthritic changes. IMPRESSION: 1. Portal venous air and a small amount of pneumatosis. Consider ischemic bowel. 2. High-grade early or partial small bowel obstruction. 3. Limited study due to lack of oral and intravenous contrast.
--- NOTE | 2017-08-29 07:44 | RAD ---
INDICATION: ET tube placement COMPARISON: August 28, 2017 TECHNIQUE: An AP portable view obtained at 0700 hours is submitted. FINDINGS: Bones/Soft Tissues: There are no acute bony findings. There is no endotracheal tube positioned 3 cm below deidra. Nasogastric tube passes normally through the mediastinum. Cardiomediastinal: The cardiomediastinal silhouette is normal. Lungs: There are no infiltrates. Pleura: There are no pleural effusions. Other: Views the upper abdomen demonstrate prominent small bowel loops consistent with the previously described findings of small bowel obstruction. IMPRESSION: ENDOTRACHEAL AND NASOGASTRIC TUBES IN SATISFACTORY POSITIONS. LUNGS CLEAR.
[2017-08-29] MEDS: Heparin VIAL(*) 5000 UNITS/ML VIAL (FIVE THOUSAND) SUBCUT SCH (07:58)
[2017-08-29] MEDS: Chlorhexidine MOUTHWASH 0.12%* 15 ML UDC TOPICAL SCH ×3 (07:58→18:33)
[2017-08-29] MEDS: Pantoprazole IV* 40 MG IV SCH (07:58)
[2017-08-29] MEDS: NS 0.9% 1000 ML* 1,000 ML IV ONE ×2 (08:00→18:00)
[2017-08-29 08:04] LABS: Hematocrit 40 % (42-52); Hemoglobin 13.3 g/dl (14.0-18.0); Mean Corpuscular HGB Conc 33 g/dl (31-36); Mean Corpuscular Hemoglobin 34 pg (27-31); Mean Corpuscular Volume 103 fL (80-94); Mean Platelet Volume 9.3 um3 (7.4-10.4); Platelet Count 91 10^3/ul (150-450); Red Blood Count 3.88 10^6/ul (4.0-5.4); Red Cell Distribution Width 18 % (10.5-15); White Blood Count 4.1 10^3/ul (3.5-10.8)
[2017-08-29 08:15] LABS: EGFR Non-African American 14.8 (>60)
[2017-08-29] MEDS: NS 0.9% 1000 ML* 1,000 ML IV SCH ×2 (08:30→17:18)
[2017-08-29] MEDS: Aspirin EC TAB* 81 MG TAB.EC PO SCH (08:48)
[2017-08-29] MEDS: Finasteride TAB* 5 MG PO SCH (08:48)
[2017-08-29] MEDS: Atorvastatin* 40 MG TAB PO SCH (08:48)
--- NOTE | 2017-08-29 13:34 | PN ---
Progress Note - Progress Note Date of Service: 08/29/17 Note: CRITICAL CARE MEDICINE Date: 08/29/17 Time: 1250 SUBJECTIVE: Patient seen and examined. PHYSICAL EXAM: Vital Signs: Reviewed. HR 70s. Neurologic: awakens, follows simple commands. (less arousable when seen earlier today on md rounds). HEENT: pupils equal. Sclera anicteric. Trachea midline. Cardiovascular: S1 S2 Respiratory: rhonchi bl. fio2 down to 35% and on cpap with large vol on 12/01 Abdomen: Soft, mild distension. small midline incision. dressing applied. Mild RLQ discomfort. no bs Extremities: Warm. mild dep edema Access: piv, R art rah LABS: Reviewed. IMAGING: Reviewed. MEDICATIONS: Reviewed. ASSESSMENT: 82 M SBO with internal hernia reduction s/p ex lap Hypovolemic shock >septic shock sec to above ARF - with components of pre-renal and atn Lactic acidosis on admission Acute post op, nonthoracic, resp failure PLAN: Neurologic: versed held (was low dose). fent orthopedics nurse low dose for now. awakening more and can hold if able to liberate vent and determine his needs better. Cardiovascular: Perfusing. bp low side but had responded to fluids. rah without pulse pressure variation. if he can liberate vent his status may be more optivolemic and may not need to further overload interstium. if remaining on ppv may still soak up vol. no need for vasopressors. one question would be a bp benefit from steroids? Respiratory: Nohemi wean currently. low level pressures. still working off some acid but mv < 10 lpm and fiO2 35%. will look to liberate. hfo2 perhaps if inc wob. otherwise looks very well with low dose settings and OR needs have been addressed. Gastrointestinal: ngt drainage can remain. ppi. npo for now. surgical f/u Renal/Metabolic: some improvement with fluids and pre-renal but concern for atn component as well which may take time. LA clearance can be followed up. I would worry about lingering global bowel ailments and further renal fall out, vs hopeful recovery phases. Will try not to overload. Davis helpful for vol status presently. Infectious Disease: on C3 and flagyl continued for now. Hematology: wbc low end with immatures and would expect a sharp rise her with maturation, but with clinical improvement come tomorrow. Endocrine: off vent will re-address potential empiric steroid needs. would rather reserve for now given bowel ailments, but would also rather avoid fluid overload and vasopressors. clinical follow Musculoskeletal: f/u deconditioning Psych/Social: looking to update daughter upon her return Supportive and preventative care as ordered. SUP: ppi VTE prophylaxis: heparin Mc catheter given critical illness, monitoring needs for accurate assessment of EUGENIO and KDIGO criteria for critically ill patients and to avoid potential harms of urinary retention, skin breakdown/ulcers. Disposition: ICU Code Status: Full presently Critical Care Time: 40min D/w Surgery. Justin Dangelo DO
--- NOTE | 2017-08-29 14:29 | PN ---
Progress Note - Progress Note Date of Service: 08/29/17 Note: CRITICAL CARE MEDICINE Date: 08/29/17 Time: 1400 Daughter updated at bedside. She expressed good understanding as well as conveyed pts wishes clearly. We agreed to plan. DNR, DNI; trial NIV if provider agrees and otherwise continued support as needed. Hopefully he can show us how well he can do come the next 24hrs. Toleratin first hour post liberation fairly well. NC 3L. Cardiac variability with HR and BP but aoc on rah still without pulse pressure variation. Going to keep fluids going as is for now, but may look to dec later and unfortunately looking like anuric atn phase now. Given bp variability will give empiric stress dose steroids for hopefully perfusion reserve benefit. again, rather avoid vasopressors as bowels still a little worrisome. Daughter states bp has been lower as of late and with his ongoing weight lost. She expresses if its his time to go, he'll want to go. ICU care. Code Status: DNR/DNI Critical Care Time: 20min Justin Dangelo DO
[2017-08-29] MEDS: Hydrocortisone INJ* 100 MG VIAL IV SCH ×2 (15:06→20:49)
[2017-08-29] MEDS: cefTRIAXone(*) 1 GM in NS 0.9% 50 ML* 50 ML IVPB SCH (23:41)
[2017-08-30] MEDS: NS 0.9% 1000 ML* 1,000 ML IV SCH ×2 (01:11→09:12)
[2017-08-30] MEDS: metroNIDAZOLE IV 500 MG/100ML* 500 MG/100 ML BAG IVPB SCH ×4 (01:50→20:07)
[2017-08-30] MEDS: Hydrocortisone INJ* 100 MG VIAL IV SCH ×3 (05:17→23:41)
[2017-08-30 06:00] LABS: Hematocrit 34 % (42-52); Hemoglobin 11.4 g/dl (14.0-18.0); Mean Corpuscular HGB Conc 33 g/dl (31-36); Mean Corpuscular Hemoglobin 34 pg (27-31); Mean Corpuscular Volume 102 fL (80-94); Mean Platelet Volume 9.2 um3 (7.4-10.4); Platelet Count 75 10^3/ul (150-450); Red Blood Count 3.37 10^6/ul (4.0-5.4); Red Cell Distribution Width 18 % (10.5-15); White Blood Count 11.1 10^3/ul (3.5-10.8)
[2017-08-30 06:17] LABS: EGFR Non-African American 26.7 (>60)
[2017-08-30 06:28] LABS: Monocytes % 5 % (0-7)
[2017-08-30] MEDS: Pantoprazole IV* 40 MG IV SCH (07:22)
[2017-08-30] MEDS: Mometasone/Formoter 200/5 MDI INH SCH ×2 (08:38→19:57)
[2017-08-30] MEDS ORDERED: Magnesium Sulfate 2 GM IV* 2 GM/50 ML BAG IVPB ONE (09:28)
[2017-08-30] MEDS: Aspirin EC TAB* 81 MG TAB.EC PO SCH (09:53)
[2017-08-30] MEDS: Atorvastatin* 40 MG TAB PO SCH (09:53)
[2017-08-30] MEDS: Finasteride TAB* 5 MG PO SCH (09:54)
[2017-08-30] MEDS: NS 0.45% KCl 20 Meq 1000 ML* 1,000 ML IV SCH ×2 (09:57→15:05)
[2017-08-30] MEDS ORDERED: Dextrose 50% Syringe 50 ML* 25 GM/50 ML SYRINGE ONE (10:39)
[2017-08-30] MEDS ORDERED: Dextrose 50% Syringe 50 ML* 25 GM/50 ML SYRINGE IV PUSH SCH (11:00)
--- NOTE | 2017-08-30 11:31 | PN ---
Progress Note - Progress Note Date of Service: 08/30/17 Note: CRITICAL CARE MEDICINE Date: 08/30/17 Time: 1030 SUBJECTIVE: Patient seen and examined. Daughter present. PHYSICAL EXAM: Vital Signs: Reviewed. HR 70s. Neurologic: awake, communicating. follows simple commands. (less arousable when seen earlier today on md rounds). HEENT: R eye blindness and degradation. Trachea midline. No stridor. Cardiovascular: S1 S2, few pvcs Respiratory: rhonchi scant and improves with cough. 3L Abdomen: Soft, mild distension. +bs. Extremities: Warm. mild dep edema Access: piv, R art rah intact LABS: Reviewed. IMAGING: Reviewed. MEDICATIONS: Reviewed. ASSESSMENT: 82 M SBO with internal hernia reduction s/p ex lap - improved Hypovolemic shock >septic shock sec to above - resolving ARF - with components of pre-renal and atn - improved Lactic acidosis on admission - improved Acute post op, nonthoracic, resp failure - recovering PLAN: Neurologic: no c/o pain. prns. Cardiovascular: Perfusing well. hs. vol status up a touch and with renal recovery hoping he will mobilize, and need to keep some gently hypotonic fluids with recovery phase. steroids of benefit but can quickly come off Respiratory: 3L and weaning. IS. oob Gastrointestinal: ngt drainage stillovernight but down this am. ngt per surg. could probably start clears, but will allow surgery to decide. ppi. Renal/Metabolic: improvement nice. as above. f/u lytes Infectious Disease: on C3 and flagyl continued; perhaps short course if cx remain neg. Hematology: wbc stable. Hb dilutional equilibration and some consumption alone with plt consumption. hsq ok still. Endocrine: wean steroids quickly Musculoskeletal: f/u deconditioning; pt needs. bobbi monreal. Psych/Social: daughter up to date Supportive and preventative care as ordered. SUP: ppi VTE prophylaxis: heparin Mc catheter given critical illness, monitoring needs for accurate assessment of EUGENIO and KDIGO criteria for critically ill patients and to avoid potential harms of urinary retention, skin breakdown/ulcers. Disposition: perhaps ready for floor but re-assess after am Code Status: DNR/DNI Critical Care Time: 30min Justin Dangelo DO
--- NOTE | 2017-08-30 13:48 | PN ---
Progress Note - Progress Note Date of Service: 08/30/17 SOAP: Subjective: Patient seen and examined. Patient feels better today. We were able to walk around together in the ICU. He has no appetite area he had small amount of flatus. Objective: Afebrile, vital signs stable Urine output good. NG tube output decreasing. Alert and oriented 3 Lungs clear Abdomen: Soft, nondistended, incisional tenderness. Dressing intact and not removed. Hypoactive bowel sounds Extremities within normal limits Labs noted Assessment: Postoperative day 1, exploratory laparoscopy for lysis of adhesions. Plan: [] No attention at this point to perform a second look. I discussed this with the patient's family. Our plan will be expectant treatment at this point. NG tube was removed. Continue nothing by mouth status at this point with plan for starting oral intake tomorrow. SACMA to cover me through the weekend.
--- NOTE | 2017-08-30 14:11 | OP ---
CC: Dr. Emanuel Gary; [facility] OPERATIVE REPORT: DATE OF OPERATION: 08/29/17 DATE OF : 39 SURGEON: Chencho Bowman MD LABEL REWINDER: None. ANESTHESIOLOGIST: Ehsan Urrutia MD ANESTHESIA: General. PRE-OP DIAGNOSES: Acute abdomen, small bowel obstruction. POST-OP DIAGNOSIS: Small bowel obstruction secondary to internal hernia. OPERATIVE PROCEDURE: Exploratory laparotomy, lysis of adhesion, and reduction of internal hernia. INDICATIONS: The patient remained intubated, sedated, and transferred to the ICU in critical conditi on. BLOOD LOSS: 20 cc. FLUIDS: 4100 cc of crystalloid fluid given. SPECIMEN: None. DRAINS: None. DESCRIPTION OF PROCEDURE: Mr. Lee was taken to the operating room, placed on the operating tabl e in the supine position. Preoperative antibiotics have already been given. General anesthesia in a rapid sequence was then delivered. A right radial A line was placed by the anesthesiologist. Declan e see separate report for detail. The patient's abdomen was then clipped of hair, prepped and draped in standard surgical fashion, and a time-out was performed. I started incision 3 fingerbreadths below the umbilicus, which was extended around the right side of the umbilicus extending to the previous scarring in this site and we extended it along the lower abdo men in the midline, deepened this through all layers of the abdominal wall. Entering the abdominal c avity, we noted significantly dilated small bowel. Lysis of adhesion was then carried out, taking sm all bowel loops off additional small bowel loops, the omentum was easily reflected cephalad. The sma ll bowel extended towards the adhesion to the anterior abdominal wall with bowel to loop behind this area. This was placed in the appropriate orientation and through sharp dissection, we were able to l ysis the small bowel off the abdominal wall to prevent additional herniation in the future. We review ed the area and showed no evidence of injury to the intestine. Next, the proximal small bowel, which was quite dilated, had its contents pushed retrograde back into the stomach where it could be suctioned out, approximately 900 cc was suctioned. The area that was attached to the anterior abdominal wall was patent. We then irrigated the abdomen. At this point, t he small bowel appeared somewhat minimally violaceous in appearance, did show a mildly edematous wall . Vasculature to the mesentery appeared intact. We left the intestines in the abdomen and waited, wh ile we did, we looked in the area of the liver. The patient did have nodularity to the undersurface of the liver, but no discrete lesion. The sigmoid colon was full of stool, but I do not feel any mas ses at this site and this is a similar finding to the descending colon. Ascending and transverse col on were mostly decompressed. After this wait, the small bowel intestine again throughout most of the jejunum was only minimally violaceous, but I would not say ischemic. We made a decision to close the abdomen for the potential second look and the abdomen was closed with a running 0 Prolene suture, st arting inferior and superior and tying in the middle. The wound was then irrigated and skin staple w as used to reapproximate the skin. Sterile dressing was applied. The patient remained intubated and transferred to the PACU in critical condition. [id number]/[facility] #: [id number]
[2017-08-30] MEDS: Chlorhexidine MOUTHWASH 0.12%* 15 ML UDC TOPICAL SCH (16:34)
[2017-08-30] MEDS: Heparin VIAL(*) 5000 UNITS/ML VIAL (FIVE THOUSAND) SUBCUT SCH (16:34)
[2017-08-30] MEDS: cefTRIAXone(*) 1 GM in NS 0.9% 50 ML* 50 ML IVPB SCH (23:58)
[2017-08-31] MEDS: metroNIDAZOLE IV 500 MG/100ML* 500 MG/100 ML BAG IVPB SCH ×2 (02:43→12:25)
[2017-08-31 06:04] LABS: EGFR Non-African American 47.6 (>60)
[2017-08-31 06:19] LABS: Hematocrit 35 % (42-52); Hemoglobin 11.7 g/dl (14.0-18.0); Mean Corpuscular HGB Conc 34 g/dl (31-36); Mean Corpuscular Hemoglobin 34 pg (27-31); Mean Corpuscular Volume 102 fL (80-94); Mean Platelet Volume 9.7 um3 (7.4-10.4); Platelet Count 89 10^3/ul (150-450); Red Blood Count 3.43 10^6/ul (4.0-5.4); Red Cell Distribution Width 18 % (10.5-15); White Blood Count 14.7 10^3/ul (3.5-10.8)
[2017-08-31 07:16] LABS: ABS Basophils 0 10^3/ul (0-0.2); ABS Eosinophils 0 10^3/ul (0-0.6); ABS Lymphocytes 0.5 10^3/ul (1.0-4.8); ABS Monocytes 0.9 10^3/ul (0-0.8); ABS Neutrophils 13.2 10^3/ul (1.5-7.7); ABS Nucleated RBC 0 10^3/ul; Eosinophil % 0 % (0-6); Lymphocyte % 3.6 % (25-47); Nucleated Red Blood Cells % 0
[2017-08-31] MEDS: Mometasone/Formoter 200/5 MDI INH SCH ×2 (07:38→20:40)
--- NOTE | 2017-08-31 07:54 | PN ---
Progress Note - Progress Note Date of Service: 08/31/17 SOAP: Subjective: He continues to feel better-not having pain and nurses say he has not asked for pain meds No nausea, no flatus Was OOB yesterday Objective: Temp Pulse Resp BP Pulse Ox 97.5 F 73 16 131/55 97 08/31/17 03:53 08/31/17 03:53 08/31/17 03:53 08/31/17 03:53 08/31/17 03:53 Intake & Output 08/29/17 08/30/17 08/31/17 09/01/17 06:59 06:59 06:59 06:59 Intake Total 1373 5941.5 653 Output Total 800 1830 1110 Balance 573 4111.5 -457 Weight 114 lb 128 lb 4.944 oz Intake: IV Fluids 1270 5638.9 406 ABX - FLAGYL 20 NS (0.45%) 20 meq KCL 406 NS (0.9%) 1200 5580 POSTDOCTORAL SCIENTIST Roberth 58.9 IVPB 103 300 247 ABX - CEFTRIAXONE 53 ABX - FLAGYL 103 300 194 Medicated IV 2.6 Versed 2.6 Oral 0 Output: NG Tube Drainage Amount 800 1000 Mc 830 1110 Other: # Bowel Movements 0 0 # Voids 0 PEX: Comfortable Lungs are clear Cor is RRR Abd is soft and non-distended. Incision is CDI. Bowel sounds are present but hypoactive, not high pitched or tinkling. Appropriate incisional pain Ext without edema Laboratory Results - last 24 hr 08/30/17 08/31/17 08/31/17 10:31 05:27 05:27 WBC 14.7 H RBC 3.43 L Hgb 11.7 L Hct 35 L MCV 102 H MCH 34 H MCHC 34 RDW 18 H Plt Count 89 L MPV 9.7 Neut % (Auto) 90.1 H Lymph % (Auto) 3.6 L Rutherford % (Auto) 6.2 Eos % (Auto) 0 Baso % (Auto) 0.1 Absolute Neuts (auto) 13.2 H Absolute Lymphs (auto) 0.5 L Absolute Monos (auto) 0.9 H Absolute Eos (auto) 0 Absolute Basos (auto) 0 Absolute Nucleated RBC 0 Nucleated RBC % 0 Sodium 147 H Potassium 3.3 L Chloride 119 H Carbon Dioxide 19 L Anion Gap 9 BUN 49 H Creatinine 1.43 H Est GFR ( Amer) 61.2 Est GFR (Non-Af Amer) 47.6 BUN/Creatinine Ratio 34.3 H Glucose 93 POC Glucose (mg/dL) 70 Calcium 7.7 L Assessment: POD# 3 s/p exlap SBO secondary to internal hernia Post-op ileus Sepsis WBC up slightly ARF-improving Thrombocytopenia-improving Plan: D/C Mc-adequate urine output Replete K+ Sips of clears po OOB/pulmonary toilet Sub q heparin-was stopped-? thrombocytopenia-will investigate PPI Recheck labs in AM
[2017-08-31] MEDS ORDERED: KCL 10 MEQ/50 ML IVPREMIX* 10 MEQ/50 ML BAG IV SCH (08:00)
--- NOTE | 2017-08-31 08:50 | PN ---
Subjective Date of Service: 08/31/17 Interval History: HOSPITALIST PROGRESS NOTE Patient seen and examined at bedside. Care reviewed and d/w Amy Colon RN. Labs and xrays reviewed. He feels better today. Denies chest pain, dyspnea. No flatus, had some hiccups. Ambulating around unit. Family History: Unchanged from Admission Social History: Unchanged from Admission Past Medical History: Unchanged from Admission Objective Active Medications: Acetaminophen (Tylenol Tab*) 650 mg PO Q4H PRN PRN Reason: FEVER/PAIN Aspirin (Aspirin Ec Tab*) 81 mg PO DAILY [facility] Last Admin: 08/30/17 09:53 Dose: Not Given Atorvastatin Calcium (Lipitor*) 40 mg PO DAILY [facility] Last Admin: 08/30/17 09:53 Dose: Not Given Dextrose (D50w Syringe 50 Ml*) 12.5 gm IV PUSH ONCE [facility] Last Admin: 08/30/17 11:17 Dose: 12.5 gm Finasteride (Proscar Tab*) 5 mg PO DAILY [facility] Last Admin: 08/30/17 09:54 Dose: Not Given Heparin Sodium (Porcine) (Heparin Vial(*)) 5,000 units SUBCUT Q8HR [facility] Hydrocortisone Sodium Succinate (Solu-Cortef*) 50 mg IV BID [facility] Stop: 08/31/17 09:01 Last Admin: 08/30/17 23:41 Dose: 50 mg Ceftriaxone Sodium 1 gm/ (Sodium Chloride) 50 mls @ 200 mls/hr IVPB Q24H [facility] Last Admin: 08/30/17 23:58 Dose: 200 mls/hr Metronidazole/Sodium Chloride (Flagyl 500 Mg Ivpb*) 500 mg in 100 mls @ 100 mls /hr IVPB Q8H [facility] Last Admin: 08/31/17 02:43 Dose: 100 mls/hr Potassium Chloride/Sodium Chloride (Ns 0.45% Kcl 20 Meq 1000 Ml*) 1,000 mls @ 50 mls/hr IV PER RATE [facility] Last Admin: 08/30/17 15:05 Dose: 50 mls/hr Mometasone Furoate/Formoterol Fumar (Dulera 200/5 Mdi*) 2 puff INH BID [facility] PRN Reason: Protocol Last Admin: 08/31/17 07:38 Dose: 2 puff Ondansetron HCl (Zofran Odt Tab*) 4 mg SL Q6H PRN PRN Reason: NAUSEA/VOMITING Oxycodone HCl (Roxycodone Tab*) 5 mg PO Q4H PRN PRN Reason: PAIN - MODERATE Pantoprazole Sodium (Protonix Iv*) 40 mg IV Q24H [facility] Last Admin: 08/30/17 07:22 Dose: 40 mg Potassium Chloride (Klor Con Er Tab*) 20 meq PO BID [facility] Prochlorperazine Edisylate (Compazine Inj*) 5 mg IV Q6H PRN PRN Reason: NAUSEA/VOMITING Last Admin: 08/29/17 01:51 Dose: 5 mg Vital Signs - 8 hr 08/31/17 03:53 Temperature 97.5 F Pulse Rate 73 Respiratory 16 Rate Blood Pressure 131/55 (mmHg) O2 Sat by Pulse 97 Oximetry Oxygen Devices in Use Now: None Appearance: Pleasant elderly male lying in bed in NAD. Eyes: No Scleral Icterus Ears/Nose/Mouth/Throat: Mucous Membranes Moist Neck: Trachea Midline Respiratory: Symmetrical Chest Expansion and Respiratory Effort, Clear to Auscultation Cardiovascular: RRR - Normal S1 and S2 Abdominal: - - Soft, mild diffuse tenderness, midline surgical incision with sunitha in place, no erythema or drainage, BS+ hypoactive Extremities: No Edema Neurological: Alert and Oriented x 3, NL Muscle Strength and Tone Result Diagrams: 08/31/17 05:27 08/31/17 05:27 Assess/Plan/Problems-Billing Assessment: Mr. Lee is an 82yo M with PMH of diverticulitis, HTN, gout, PUD, CVA, who presented to ED with weakness and confusion, found to have hypovolemic/septic shock secondary to intra abdominal infection/SBO s/p ex lap with internal hernia reduction. - Patient Problems (1) Shock Comment: - Hypovolemic/Septic present on admission. (2) SBO (small bowel obstruction) Comment: - S/p ex lap with KAYCEE and reduction or internal hernia reduction . - BS+ but hypoactive, no flatus. - Start sips of clears and monitor. - Continue antibiotics. (3) EUGENIO (acute kidney injury) Comment: - Likely pre-renal - improving. (4) Hypokalemia Comment: - Replete. (5) Thrombocytopenia Comment: - Secondary to sepsis - trending back up. (6) DVT prophylaxis Comment: - SQ heparin.
[2017-08-31] MEDS: Pantoprazole IV* 40 MG IV SCH (09:15)
[2017-08-31] MEDS: Aspirin EC TAB* 81 MG TAB.EC PO SCH (09:16)
[2017-08-31] MEDS: Finasteride TAB* 5 MG PO SCH (09:16)
[2017-08-31] MEDS: Atorvastatin* 40 MG TAB PO SCH (09:16)
[2017-08-31] MEDS: Potassium Chlor TAB* 20 MEQ TAB.ER PO SCH ×2 (09:16→21:32)
[2017-08-31] MEDS: Hydrocortisone INJ* 100 MG VIAL IV SCH (09:16)
[2017-08-31] MEDS: metroNIDAZOLE TAB* 250 MG PO SCH ×2 (14:02→21:35)
[2017-08-31] MEDS: Heparin VIAL(*) 5000 UNITS/ML VIAL (FIVE THOUSAND) SUBCUT SCH ×2 (14:03→21:37)
--- NOTE | 2017-08-31 17:29 | PN ---
Progress Note - Progress Note Date of Service: 08/31/17 Note: CTSP--lost iv access, can't get another. Pt now on liquids po. States no N/V, feels he can tolerate well. Does not want any more iv sticks. Will attempt to manage with po's for now and reassess in AM.
[2017-08-31] MEDS ORDERED: Ondansetron ODT TAB* 4 MG SL PRN (21:13)
[2017-08-31] MEDS: amLODIPine TAB* 5 MG PO SCH (21:33)
[2017-08-31] MEDS: Ciprofloxacin TAB* 500 MG PO SCH (21:36)
[2017-09-01 06:13] LABS: ABS Basophils 0 10^3/ul (0-0.2); ABS Eosinophils 0.1 10^3/ul (0-0.6); ABS Lymphocytes 1.2 10^3/ul (1.0-4.8); ABS Monocytes 1.3 10^3/ul (0-0.8); ABS Neutrophils 12.9 10^3/ul (1.5-7.7); ABS Nucleated RBC 0 10^3/ul; Eosinophil % 0.7 % (0-6); Hematocrit 39 % (42-52); Hemoglobin 13.2 g/dl (14.0-18.0); Lymphocyte % 7.9 % (25-47); Mean Corpuscular HGB Conc 34 g/dl (31-36); Mean Corpuscular Hemoglobin 34 pg (27-31); Mean Corpuscular Volume 102 fL (80-94); Mean Platelet Volume 9.6 um3 (7.4-10.4); Nucleated Red Blood Cells % 0.1; Platelet Count 94 10^3/ul (150-450); Red Blood Count 3.86 10^6/ul (4.0-5.4); Red Cell Distribution Width 18 % (10.5-15); White Blood Count 15.5 10^3/ul (3.5-10.8)
[2017-09-01 06:15] LABS: EGFR Non-African American 70.3 (>60)
[2017-09-01] MEDS: Heparin VIAL(*) 5000 UNITS/ML VIAL (FIVE THOUSAND) SUBCUT SCH ×3 (06:33→21:05)
[2017-09-01] MEDS: oxyCODONE TAB* 5 MG TAB PO PRN ×2 (06:39→19:28)
[2017-09-01] MEDS: Pantoprazole IV* 40 MG IV SCH (07:35)
[2017-09-01] MEDS: Mometasone/Formoter 200/5 MDI INH SCH ×2 (08:23→19:38)
[2017-09-01] MEDS: Aspirin EC TAB* 81 MG TAB.EC PO SCH (08:38)
[2017-09-01] MEDS: Atorvastatin* 40 MG TAB PO SCH (08:38)
[2017-09-01] MEDS: metroNIDAZOLE TAB* 250 MG PO SCH ×3 (08:38→21:03)
[2017-09-01] MEDS: Potassium Chlor TAB* 20 MEQ TAB.ER PO SCH ×2 (08:39→21:05)
[2017-09-01] MEDS: amLODIPine TAB* 5 MG PO SCH (08:39)
[2017-09-01] MEDS: Finasteride TAB* 5 MG PO SCH (08:39)
[2017-09-01] MEDS: Ciprofloxacin TAB* 500 MG PO SCH ×2 (08:39→21:03)
--- NOTE | 2017-09-01 11:50 | PN ---
Progress Note - Progress Note Date of Service: 09/01/17 Note: S/P SBO Afeb, VS noted UO adeq Rohit po's, No n/v Alert and coherent, minimal pain Abd--soft, incis clean, min tender Impr S/P SBO, rohit po's Increase diet slowly WBC up, but less left shift, and Hgb up as well--will cont to follow
[2017-09-01] MEDS: Al Hydrox/Mg Hydrox/Simet LIQ* 30 ML UDC PO PRN (15:34)
[2017-09-01] MEDS: Famotidine TAB* 20 MG PO SCH ×2 (15:34→21:03)
--- NOTE | 2017-09-01 16:06 | PN ---
Subjective Date of Service: 09/01/17 Interval History: HOSPITALIST PROGRESS NOTE Patient seen and examined at bedside. He feels well today, denies abdominal pain. Tolerating clear liquids, passed flatus, no BM so far. Family History: Unchanged from Admission Social History: Unchanged from Admission Past Medical History: Unchanged from Admission Objective Active Medications: Acetaminophen (Tylenol Tab*) 650 mg PO Q4H PRN PRN Reason: FEVER/PAIN Al Hydrox/Mg Hydrox/Simethicone (Maalox Plus*) 30 ml PO Q6H PRN PRN Reason: HEARTBURN Last Admin: 09/01/17 15:34 Dose: 30 ml Amlodipine Besylate (Norvasc Tab*) 5 mg PO DAILY [facility] Last Admin: 09/01/17 08:39 Dose: 5 mg Aspirin (Aspirin Ec Tab*) 81 mg PO DAILY [facility] Last Admin: 09/01/17 08:38 Dose: 81 mg Atorvastatin Calcium (Lipitor*) 40 mg PO DAILY [facility] Last Admin: 09/01/17 08:38 Dose: 40 mg Ciprofloxacin (Cipro Tab*) 500 mg PO Q12HR [facility] Last Admin: 09/01/17 08:39 Dose: 500 mg Dextrose (D50w Syringe 50 Ml*) 12.5 gm IV PUSH ONCE [facility] Last Admin: 08/30/17 11:17 Dose: 12.5 gm Famotidine (Pepcid Tab*) 20 mg PO BID [facility] Last Admin: 09/01/17 15:34 Dose: 20 mg Finasteride (Proscar Tab*) 5 mg PO DAILY [facility] Last Admin: 09/01/17 08:39 Dose: 5 mg Heparin Sodium (Porcine) (Heparin Vial(*)) 5,000 units SUBCUT Q8HR [facility] Last Admin: 09/01/17 13:28 Dose: 5,000 units Metronidazole (Flagyl Tab*) 500 mg PO TID [facility] Last Admin: 09/01/17 13:52 Dose: 500 mg Mometasone Furoate/Formoterol Fumar (Dulera 200/5 Mdi*) 2 puff INH BID [facility] PRN Reason: Protocol Last Admin: 09/01/17 08:23 Dose: 2 puff Oxycodone HCl (Roxycodone Tab*) 5 mg PO Q4H PRN PRN Reason: PAIN - MODERATE Last Admin: 09/01/17 06:39 Dose: 5 mg Potassium Chloride (Klor Con Er Tab*) 20 meq PO BID [facility] Last Admin: 09/01/17 08:39 Dose: 20 meq Prochlorperazine (Compazine Tab*) 10 mg PO Q6HR PRN PRN Reason: NAUSEA Prochlorperazine Edisylate (Compazine Inj*) 5 mg IV Q6H PRN PRN Reason: NAUSEA/VOMITING Last Admin: 08/29/17 01:51 Dose: 5 mg Vital Signs - 8 hr 09/01/17 09/01/17 09/01/17 08:25 08:42 11:37 Temperature 97.7 F Pulse Rate 76 77 Respiratory 16 16 Rate Blood Pressure 114/68 (mmHg) O2 Sat by Pulse 96 94 Oximetry Oxygen Devices in Use Now: None Appearance: Pleasant elderly gentleman lying in bed in NAD. Eyes: No Scleral Icterus Ears/Nose/Mouth/Throat: Mucous Membranes Moist Neck: Trachea Midline Respiratory: Symmetrical Chest Expansion and Respiratory Effort, Clear to Auscultation Cardiovascular: RRR - Normal S1 and S2 Abdominal: - - Soft, mild diffuse tenderness, midline incision is clean, BS+ Neurological: Alert and Oriented x 3 Result Diagrams: 09/01/17 05:17 09/01/17 05:17 Assess/Plan/Problems-Billing Assessment: Mr. Lee is an 82yo M with PMH of diverticulitis, HTN, gout, PUD, CVA, who presented to ED with weakness and confusion, found to have hypovolemic/septic shock secondary to intra abdominal infection/SBO s/p ex lap with internal hernia reduction. - Patient Problems (1) Shock Comment: - Hypovolemic/Septic present on admission. (2) SBO (small bowel obstruction) Comment: - S/p ex lap with KAYCEE and reduction or internal hernia reduction . - GI function improving - BS+ and hypoactive, passing flatus. - Continue clear liquids and monitor. - Continue antibiotics. (3) EUGENIO (acute kidney injury) Comment: - Likely pre-renal - improving. (4) Hypokalemia Comment: - Resolved. (5) Thrombocytopenia Comment: - Secondary to sepsis - trending back up. (6) DVT prophylaxis Comment: - SQ heparin.
[2017-09-01] MEDS: Acetaminophen TAB* 325 MG PO PRN (19:32)
[2017-09-01] MEDS: Albuterol/Ipratropium NEB.SOL* Albuterol 2.5 MG/Ipratropium 0.5 MG 3 ML INH PRN (19:38)
[2017-09-02 06:28] LABS: EGFR Non-African American 80.2 (>60)
[2017-09-02 06:58] LABS: Hematocrit 39 % (42-52); Hemoglobin 13.2 g/dl (14.0-18.0); Mean Corpuscular HGB Conc 34 g/dl (31-36); Mean Corpuscular Hemoglobin 34 pg (27-31); Mean Corpuscular Volume 101 fL (80-94); Mean Platelet Volume 9.3 um3 (7.4-10.4); Platelet Count 80 10^3/ul (150-450); Red Blood Count 3.87 10^6/ul (4.0-5.4); Red Cell Distribution Width 18 % (10.5-15)
[2017-09-02] MEDS: Heparin VIAL(*) 5000 UNITS/ML VIAL (FIVE THOUSAND) SUBCUT SCH ×3 (07:33→22:57)
[2017-09-02] MEDS: Mometasone/Formoter 200/5 MDI INH SCH ×2 (07:37→20:03)
[2017-09-02 07:44] LABS: Monocytes % 4 % (0-7)
[2017-09-02] MEDS: Atorvastatin* 40 MG TAB PO SCH (09:00)
[2017-09-02] MEDS: Famotidine TAB* 20 MG PO SCH ×2 (09:00→14:26)
[2017-09-02] MEDS: Acetaminophen TAB* 325 MG PO PRN (09:01)
[2017-09-02] MEDS: metroNIDAZOLE TAB* 250 MG PO SCH (09:01)
[2017-09-02] MEDS: Potassium Chlor TAB* 20 MEQ TAB.ER PO SCH ×2 (09:01→22:54)
[2017-09-02] MEDS: Ciprofloxacin TAB* 500 MG PO SCH (09:01)
[2017-09-02] MEDS: Finasteride TAB* 5 MG PO SCH (09:01)
[2017-09-02] MEDS: Aspirin EC TAB* 81 MG TAB.EC PO SCH (09:01)
[2017-09-02] MEDS: amLODIPine TAB* 5 MG PO SCH (09:01)
[2017-09-02] MEDS: Prochlorperazine TAB* 10 MG PO PRN (09:02)
--- NOTE | 2017-09-02 09:21 | PN ---
Progress Note - Progress Note Date of Service: 09/02/17 SOAP: Subjective: Pt seen and examined. Feeling better. Some abdo pain. pos flatus Objective: af vss abdo: soft/ ND/ inc tenderness labs noted, wbc=14k Assessment: POD 4 ex lap, elevated wbc could be 2ary to atelectasis, also represents expected increase after recent bandemia. HD stable, resolved ARF Plan: d/c varela d/c abx pulm toilet OOB soft diet d/c planning
[2017-09-02] MEDS: D5LR 1000 ML BAG* 1,000 ML IV SCH ×2 (13:12→23:20)
--- NOTE | 2017-09-02 14:17 | PN ---
Subjective Date of Service: 09/02/17 Interval History: HOSPITALIST PROGRESS NOTE Patient seen and examined at bedside. Care reviewed and d/w Alison RN. He feels a little weak and nauseated today. Denies abdominal pain, passing flatus, but no BM. Tolerating diet despite nausea, but intake is poor. Family History: Unchanged from Admission Social History: Unchanged from Admission Past Medical History: Unchanged from Admission Objective Active Medications: Acetaminophen (Tylenol Tab*) 650 mg PO Q4H PRN PRN Reason: FEVER/PAIN Last Admin: 09/02/17 09:01 Dose: 650 mg Al Hydrox/Mg Hydrox/Simethicone (Maalox Plus*) 30 ml PO Q6H PRN PRN Reason: HEARTBURN Last Admin: 09/01/17 15:34 Dose: 30 ml Albuterol/Ipratropium (Duoneb (Albuterol 2.5 Mg/Ipratropium 0.5 Mg)) 1 neb INH Q4H PRN PRN Reason: SOB/WHEEZING Last Admin: 09/01/17 19:38 Dose: 1 neb Amlodipine Besylate (Norvasc Tab*) 5 mg PO DAILY [facility] Last Admin: 09/02/17 09:01 Dose: 5 mg Aspirin (Aspirin Ec Tab*) 81 mg PO DAILY [facility] Last Admin: 09/02/17 09:01 Dose: 81 mg Atorvastatin Calcium (Lipitor*) 40 mg PO DAILY [facility] Last Admin: 09/02/17 09:00 Dose: 40 mg Famotidine (Pepcid Tab*) 20 mg PO BID [facility] Last Admin: 09/02/17 09:00 Dose: 20 mg Finasteride (Proscar Tab*) 5 mg PO DAILY [facility] Last Admin: 09/02/17 09:01 Dose: 5 mg Heparin Sodium (Porcine) (Heparin Vial(*)) 5,000 units SUBCUT Q8HR [facility] Last Admin: 09/02/17 07:33 Dose: 5,000 units Dextrose/Lactated Ringer's (D5lr 1000 Ml Bag*) 1,000 mls @ 100 mls/hr IV PER RATE [facility] Last Admin: 09/02/17 13:12 Dose: 100 mls/hr Mometasone Furoate/Formoterol Fumar (Dulera 200/5 Mdi*) 2 puff INH BID [facility] PRN Reason: Protocol Last Admin: 09/02/17 07:37 Dose: 2 puff Oxycodone HCl (Roxycodone Tab*) 5 mg PO Q4H PRN PRN Reason: PAIN - MODERATE Last Admin: 09/01/17 19:28 Dose: 5 mg Potassium Chloride (Klor Con Er Tab*) 20 meq PO BID [facility] Last Admin: 09/02/17 09:01 Dose: 20 meq Prochlorperazine (Compazine Tab*) 10 mg PO Q6HR PRN PRN Reason: NAUSEA Last Admin: 09/02/17 09:02 Dose: 10 mg Prochlorperazine Edisylate (Compazine Inj*) 5 mg IV Q6H PRN PRN Reason: NAUSEA/VOMITING Last Admin: 08/29/17 01:51 Dose: 5 mg Vital Signs - 8 hr 09/02/17 09/02/17 07:48 07:50 Temperature 99.0 F Pulse Rate 74 Respiratory 16 16 Rate Blood Pressure 145/63 (mmHg) O2 Sat by Pulse 97 Oximetry Oxygen Devices in Use Now: Nasal Cannula - 2 liters Appearance: Pleasant elderly male sitting up in a chair in NAD. Eyes: No Scleral Icterus Ears/Nose/Mouth/Throat: Mucous Membranes Moist Neck: Trachea Midline Respiratory: Symmetrical Chest Expansion and Respiratory Effort, Clear to Auscultation Cardiovascular: RRR - Normal S1 and S2 Abdominal: - - Soft, mild incisional tenderness, BS+, incision is clean and dry Neurological: Alert and Oriented x 3, NL Muscle Strength and Tone Result Diagrams: 09/02/17 05:39 09/02/17 05:39 Assess/Plan/Problems-Billing Assessment: Mr. Lee is an 82yo M with PMH of diverticulitis, HTN, gout, PUD, CVA, who presented to ED with weakness and confusion, found to have hypovolemic/septic shock secondary to intra abdominal infection/SBO s/p ex lap with internal hernia reduction. - Patient Problems (1) Shock Comment: - Hypovolemic/Septic present on admission. (2) Dehydration Comment: - Patient has mild dehydration and has not been able to hydrate enough with PO intake. - Sodium is trending up and UO although still normal is trending now. - Will give IVF today and monitor. (3) SBO (small bowel obstruction) Comment: - S/p ex lap with KAYCEE and reduction or internal hernia reduction 05/03/ 18. - GI function improving - BS+ and hypoactive, passing flatus. - Advance diet as tolerated. (4) EUGENIO (acute kidney injury) Comment: - Likely pre-renal - improving. (5) Hypokalemia Comment: - Resolved. (6) Thrombocytopenia Comment: - Secondary to sepsis - trending back up. (7) DVT prophylaxis Comment: - SQ heparin.
[2017-09-02] MEDS: Albuterol/Ipratropium NEB.SOL* Albuterol 2.5 MG/Ipratropium 0.5 MG 3 ML INH PRN (14:46)
[2017-09-03] MEDS: Heparin VIAL(*) 5000 UNITS/ML VIAL (FIVE THOUSAND) SUBCUT SCH ×3 (05:54→22:50)
[2017-09-03 08:13] LABS: ABS Basophils 0 10^3/ul (0-0.2); ABS Eosinophils 0.2 10^3/ul (0-0.6); ABS Lymphocytes 1.2 10^3/ul (1.0-4.8); ABS Monocytes 0.7 10^3/ul (0-0.8); ABS Neutrophils 10.9 10^3/ul (1.5-7.7); ABS Nucleated RBC 0 10^3/ul; Eosinophil % 1.4 % (0-6); Hematocrit 37 % (42-52); Hemoglobin 12.4 g/dl (14.0-18.0); Mean Corpuscular HGB Conc 33 g/dl (31-36); Mean Corpuscular Hemoglobin 34 pg (27-31); Mean Corpuscular Volume 102 fL (80-94); Mean Platelet Volume 9.4 um3 (7.4-10.4); Nucleated Red Blood Cells % 0; Platelet Count 76 10^3/ul (150-450); Red Blood Count 3.68 10^6/ul (4.0-5.4); Red Cell Distribution Width 18 % (10.5-15)
[2017-09-03 08:28] LABS: EGFR Non-African American 83.3 (>60)
[2017-09-03] MEDS: Potassium Chlor TAB* 20 MEQ TAB.ER PO SCH ×2 (09:13→22:52)
[2017-09-03] MEDS: Aspirin EC TAB* 81 MG TAB.EC PO SCH (09:13)
[2017-09-03] MEDS: Atorvastatin* 40 MG TAB PO SCH (09:14)
[2017-09-03] MEDS: Prochlorperazine TAB* 10 MG PO PRN (09:14)
[2017-09-03] MEDS: Finasteride TAB* 5 MG PO SCH (09:14)
[2017-09-03] MEDS: amLODIPine TAB* 5 MG PO SCH (09:14)
[2017-09-03] MEDS: Famotidine TAB* 20 MG PO SCH ×2 (09:14→22:53)
[2017-09-03] MEDS: D5W 1000 ML BAG* 1,000 ML IV SCH (09:29)
--- NOTE | 2017-09-03 10:02 | PN ---
Progress Note - Progress Note Date of Service: 09/03/17 SOAP: Subjective: Pt seen and examined. Feeling better. Some abdo pain. pos flatus Objective: af vss abdo: soft/ ND/ tender w/o rebound hypoactive BS ext: wnl Assessment: POD 5 ex lap, narinder Plan: varela on discharge pulm toilet OOB d/c planning
[2017-09-03] MEDS: oxyCODONE TAB* 5 MG TAB PO PRN (13:01)
[2017-09-03] MEDS ORDERED: Ondansetron ODT TAB* 4 MG SL PRN (13:13)
--- NOTE | 2017-09-03 13:39 | PN ---
Subjective Date of Service: 09/03/17 Interval History: HOSPITALIST PROGRESS NOTE Patient seen and examined at bedside. He feels tired today. Passing flatus, but no BM. Tolerating diet. Ambulated around the unit twice yesterday, will try three times today. Family History: Unchanged from Admission Social History: Unchanged from Admission Past Medical History: Unchanged from Admission Objective Active Medications: Acetaminophen (Tylenol Tab*) 650 mg PO Q4H PRN PRN Reason: FEVER/PAIN Last Admin: 09/02/17 09:01 Dose: 650 mg Al Hydrox/Mg Hydrox/Simethicone (Maalox Plus*) 30 ml PO Q6H PRN PRN Reason: HEARTBURN Last Admin: 09/01/17 15:34 Dose: 30 ml Amlodipine Besylate (Norvasc Tab*) 5 mg PO DAILY [facility] Last Admin: 09/03/17 09:14 Dose: 5 mg Aspirin (Aspirin Ec Tab*) 81 mg PO DAILY [facility] Last Admin: 09/03/17 09:13 Dose: 81 mg Atorvastatin Calcium (Lipitor*) 40 mg PO DAILY [facility] Last Admin: 09/03/17 09:14 Dose: 40 mg Famotidine (Pepcid Tab*) 20 mg PO BID [facility] Last Admin: 09/03/17 09:14 Dose: 20 mg Finasteride (Proscar Tab*) 5 mg PO DAILY [facility] Last Admin: 09/03/17 09:14 Dose: 5 mg Heparin Sodium (Porcine) (Heparin Vial(*)) 5,000 units SUBCUT Q8HR [facility] Last Admin: 09/03/17 05:54 Dose: 5,000 units Dextrose (D5w 1000 Ml Bag*) 1,000 mls @ 75 mls/hr IV PER RATE [facility] Last Admin: 09/03/17 09:29 Dose: 75 mls/hr Ondansetron HCl (Zofran Odt Tab*) 4 mg SL Q6H PRN PRN Reason: NAUSEA/VOMITING Oxycodone HCl (Roxycodone Tab*) 5 mg PO Q4H PRN PRN Reason: PAIN - MODERATE Last Admin: 09/03/17 13:01 Dose: 5 mg Potassium Chloride (Klor Con Er Tab*) 20 meq PO BID [facility] Last Admin: 09/03/17 09:13 Dose: 20 meq Prochlorperazine (Compazine Tab*) 10 mg PO Q6HR PRN PRN Reason: NAUSEA Last Admin: 09/03/17 09:14 Dose: 10 mg Prochlorperazine Edisylate (Compazine Inj*) 5 mg IV Q6H PRN PRN Reason: NAUSEA/VOMITING Last Admin: 08/29/17 01:51 Dose: 5 mg Vital Signs - 8 hr 09/03/17 09/03/17 09/03/17 07:35 07:37 13:01 Temperature 98.1 F Pulse Rate 78 Respiratory 20 20 16 Rate Blood Pressure 133/61 (mmHg) O2 Sat by Pulse 97 Oximetry Oxygen Devices in Use Now: None Appearance: Pleasant elderly male lying in bed in NAD. Eyes: No Scleral Icterus Ears/Nose/Mouth/Throat: Mucous Membranes Moist Neck: Trachea Midline Respiratory: Symmetrical Chest Expansion and Respiratory Effort, Clear to Auscultation Cardiovascular: RRR - Normal S1 and S2 Abdominal: - - Soft, mild incisional tenderness, NG, NR, BS+, incision is clean and dry Extremities: No Edema Neurological: Alert and Oriented x 3, NL Muscle Strength and Tone Result Diagrams: 09/03/17 08:05 09/03/17 08:05 Assess/Plan/Problems-Billing Assessment: Mr. Lee is an 82yo M with PMH of diverticulitis, HTN, gout, PUD, CVA, who presented to ED with weakness and confusion, found to have hypovolemic/septic shock secondary to intra abdominal infection/SBO s/p ex lap with internal hernia reduction. - Patient Problems (1) Shock Comment: - Hypovolemic/Septic present on admission. (2) Dehydration Comment: - Patient has mild dehydration and has not been able to hydrate enough with PO intake. - Continue IVF. (3) SBO (small bowel obstruction) Comment: - S/p ex lap with KAYCEE and reduction or internal hernia reduction . - GI function improving - BS+ and hypoactive, passing flatus. - Advance diet as tolerated. (4) EUGENIO (acute kidney injury) Comment: - Likely pre-renal with possible post-renal component - resolved. - Patient failed trial of spontaneous void on 08/31 and Mc was reinserted - will d/c home with it to f/u with Urology. (5) DVT prophylaxis Comment: - SQ heparin. Status and Disposition: Inpatient. Anticipate d/c in AM.
[2017-09-03] MEDS ORDERED: Magnesium Sulfate IV* 3 GM in NS 0.9% 100 ML* 100 ML IVPB ONE (14:30)
[2017-09-03] MEDS: Al Hydrox/Mg Hydrox/Simet LIQ* 30 ML UDC PO PRN (15:18)
[2017-09-04] MEDS: D5W 1000 ML BAG* 1,000 ML IV SCH (01:02)
[2017-09-04] MEDS: Heparin VIAL(*) 5000 UNITS/ML VIAL (FIVE THOUSAND) SUBCUT SCH ×2 (06:16→15:25)
--- NOTE | 2017-09-04 08:01 | PN ---
Progress Note - Progress Note Date of Service: 09/04/17 SOAP: Subjective: Pt seen and examined. Feeling better. Some abdo pain. pos flatus, no BM Objective: af vss abdo: more tense/ ND/ tender w/o rebound hypoactive BS ext: wnl Assessment: POD 6 ex lap, narinder Plan: AXR today varela on discharge pulm toilet OOB d/c planning
--- NOTE | 2017-09-04 09:09 | RAD ---
Indication: Follow-up bowel obstruction. Flat plate of the abdomen is reviewed and compared to previous exam dated August 29, 2017. There is some air in the rectum. Patient has had a laparotomy with multiple surgical sunitha. Moderately distended loops of small bowel are noted in the left upper quadrant and right upper quadrant. This may represent adynamic ileus. No obvious free air is noted. IMPRESSION: Moderately dilated loops of small bowel. Patient is status post laparotomy. Possibility of adynamic ileus should be considered.
[2017-09-04] MEDS: Famotidine TAB* 20 MG PO SCH (09:31)
[2017-09-04] MEDS: Atorvastatin* 40 MG TAB PO SCH (09:31)
[2017-09-04] MEDS: Potassium Chlor TAB* 20 MEQ TAB.ER PO SCH (09:31)
[2017-09-04] MEDS: Finasteride TAB* 5 MG PO SCH (09:31)
[2017-09-04] MEDS: amLODIPine TAB* 5 MG PO SCH (09:31)
[2017-09-04] MEDS: Aspirin EC TAB* 81 MG TAB.EC PO SCH (09:31)
[2017-09-04 12:41] VITALS: BP 126/72
--- NOTE | 2017-09-05 13:08 | DS ---
CC: Dr. Gary; Dr. Bowman; Dr. Hinkle DISCHARGE SUMMARY: DATE OF ADMISSION: 08/29/17 DATE OF DISCHARGE: 09/04/17 PRIMARY CARE PROVIDER: Dr. Gary. SURGEON: Dr. Bowman. UROLOGIST: Dr. Hinkle. HOSPITAL COURSE: Mr. Lee is an 82-year-old male with a past medical history of diverticulitis, hypertension, gout, peptic ulcer disease, CVA, status post partial colectomy, status post hernia repa ir, status post cataract extraction that presented to the emergency room on 08/29/17 with complaints of weakness and confusion. As per HPI for a couple of weeks prior to admission, the patient had prog ressive decline of his condition with weakness, fatigue, and anorexia. Prior to admission, he was navarro ving difficulty urinating and was evaluated by Dr. Hinkle. It was felt that he had an obstructive u ropathy probably secondary to his prostate. Mc catheter was placed. He was started on finasteride . For more details about his presentation, I refer you to his history and physical. At that point, the initial impression was that he could have a urinary tract infection and acute renal failure as he was found to have a markedly elevated creatinine of 5.5 from a creatinine that was 1.6 two days befo re. He was admitted for further evaluation and a chest x-ray showed no active cardiopulmonary diseas e. A CT of the abdomen and pelvis showed portal venous air and small amount of pneumatosis suggestive of ischemic bowel with a high-grade early or partial small bowel obstruction. The patient was admitted to the medical floor and he was seen in consultation by General Surgery, Dr. Bowman. His impression was that the patient at that time was in distress with involuntary guarding on the abdominal exam and CT concerning as well as bandemia and elevated lactate of 3.4 and his recommendation was to go to th e OR to rule out bowel ischemia. For more details of Dr. Bowman's impression, I refer you to his cons ultation. The patient underwent exploratory laparotomy with lysis of adhesion and reduction of inter nal hernia and he was managed in the ICU in the postop period. Dr. Dangelo felt the patient had hypo volemic and septic shock secondary to his small bowel obstruction with internal hernia. He thought t hat his acute renal failure had components of prerenal and ATN but I also think he had a postrenal co mponent with his probable BPH. [id number]/[facility] #: [id number]
--- NOTE | 2017-09-05 13:16 | DS ---
DISCHARGE SUMMARY: ADDENDUM: HOSPITAL COURSE: The patient was kept intubated after surgery and he made progress with improvement. He was extubated and his laboratory test showed progressive improvement with his leukocytosis trending down and resolution of bandemia. His renal failure also resolved. On 08/30/17, the patient was transferred out from ICU to the surgical floor and he continued to make slow, but steady progress on his postop period. He responded well with IV hydration and electrolyte replacement with normalization of his renal function and electrolytes. His diet was initiated and he was able to tolerate a regular diet at the time of discharge. The patient will receive home services through a [facility] and he was felt to be medically stable at time of discharge. The patient failed a trial of spontaneous void and for that reason, the Cm catheter was placed and he will be discharged with it to follow up with Dr. Hinkle as outpatient. PHYSICAL EXAMINATION: Vital Signs: Temperature 98.0, heart rate is 73, respiratory rate is 17, oxygen saturation 95% on room air, blood pressure is 126 /72. General: The patient is a pleasant elderly male, lying in bed, in no acute distress. CVS: Normal S1, S2. Regular rate and rhythm. Chest: Breath sounds present bilaterally with no added sounds. Abdomen: Soft with mild incisional tenderness. Midline surgical incision is clean and dry with sunitha in place. No erythema or discharge. Bowel sounds present. Extremities: No edema. Neuro: He is alert and oriented x3. Able to move all 4 extremities. DISCHARGE DIAGNOSES: 1. Septic shock. 2. Hypovolemic shock. 3. Small bowel obstruction secondary to internal hernia, status post repair. 4. Leukocytosis. 5. Bandemia. 6. Chronic thrombocytopenia. 7. Hypernatremia. 8. Hypokalemia. 9. Hypomagnesemia. 10. Moderate protein-calorie malnutrition. 11. Acute kidney injury with a prerenal and postrenal component and also ATN. 12. Benign prostatic hyperplasia with urinary retention on chronic Mc. SECONDARY DIAGNOSES: 1. Diverticulitis, status post partial colectomy. 2. Hypertension. 3. Gout. 4. Peptic ulcer disease. 5. Cerebrovascular accident. MEDICATION LIST: 1. Finasteride 5 mg p.o. daily. 2. Famotidine 20 mg p.o. b.i.d. before meals as needed for heartburn. 3. Symbicort 160/4.5 two puffs inhaled b.i.d. 4. Allopurinol 300 mg p.o. daily. 5. Aspirin 81 mg p.o. daily. 6. Atorvastatin 40 mg p.o. daily. New Medications: 1. Oxycodone 5 mg p.o. q.8 hours p.r.n. [id number] pain, MDD 15 mg, dispense 10 tablets, no refills. 2. Amlodipine 5 mg p.o. daily. 3. Ondansetron ODT 4 mg sublingual q.6 hours p.r.n. nausea or vomiting. 4. Acetaminophen 650 mg p.o. q.4 hours p.r.n. pain or fever. Lisinopril and furosemide were discontinued due to his renal failure. DIET: Regular diet. ACTIVITIES: As tolerated. DISPOSITION: To home. STATUS WHILE IN THE HOSPITAL: Inpatient. Please keep in mind, this is a summarized version of this patient's hospital stay. If you need more information , please feel free to call me at [phone] or please obtain the full medical records. TIME SPENT: Approximately 50 minutes were spent to complete this discharge. [id number]/[facility] #: [id number] JULIETTE
== END 2017-09-04 19:30 | disposition home health service (06) | DRG 853 ==
LOC: ED 20:37 → MEDTELE 08-29 → ICU 08-29 06:18 → SSU 08-30 14:44
PROVIDERS: ADMIT Hospitalist; ATTEND Internal Medicine
PROC: 0DQV0ZZ Repair Mesentery, Open Approach (ICD-10-PCS; 2017-08-29)
PROC: 5A1935Z Respiratory Ventilation, Less than 24 Consecutive Hours (ICD-10-PCS; 2017-08-29)
PROC: 0T9B70Z Drainage of Bladder with Drainage Device, Via Natural or Artificial Opening (ICD-10-PCS; principal; 2017-09-04)
DX: A41.9 Sepsis, unspecified organism (principal); R65.21 Severe sepsis with septic shock; N17.0 Acute kidney failure with tubular necrosis; J95.821 Acute postprocedural respiratory failure; E44.0 Moderate protein-calorie malnutrition; K55.9 Vascular disorder of intestine, unspecified; N39.0 Urinary tract infection, site not specified; E87.2 Acidosis; K46.0 Unspecified abdominal hernia with obstruction, without gangrene; E87.0 Hyperosmolality and hypernatremia; K56.7 Ileus, unspecified; D69.6 Thrombocytopenia, unspecified; N40.1 Benign prostatic hyperplasia with lower urinary tract symptoms; R33.8 Other retention of urine; I10 Essential (primary) hypertension; M10.9 Gout, unspecified; K27.9 Peptic ulcer, site unspecified, unspecified as acute or chronic, without hemorrhage or perforation; N13.9 Obstructive and reflux uropathy, unspecified; E86.0 Dehydration; K21.9 Gastro-esophageal reflux disease without esophagitis; E78.00 Pure hypercholesterolemia, unspecified; G31.84 Mild cognitive impairment of uncertain or unknown etiology; Z86.73 Personal history of transient ischemic attack (TIA), and cerebral infarction without residual deficits; Z90.49 Acquired absence of other specified parts of digestive tract; Z72.89 Other problems related to lifestyle; Z68.20 Body mass index [BMI] 20.0-20.9, adult; Z87.891 Personal history of nicotine dependence; Z98.42 Cataract extraction status, left eye; Z98.41 Cataract extraction status, right eye; Z79.82 Long term (current) use of aspirin; Y83.8 Other surgical procedures as the cause of abnormal reaction of the patient, or of later complication, without mention of misadventure at the time of the procedure; Z66 Do not resuscitate; E87.6 Hypokalemia; E83.42 Hypomagnesemia
CPT/HCPCS: 36415; 36620; 71045; 74018; 74176; 80048; 80053; 81003; 81015; 82150; 82570; 82803; 83605; 83690; 83735; 83880; 84100; 84153; 84156; 84300; 84484; 85025; 85610; 85730; 86140; 87040; 87086; 93005; 94002; 94640; 99284; A9270-GY; G8978-GP-CL; G8979-GP-CJ; J0330; J0696; J0780; J1644; J1720; J1956; J2250; J3010; J3475; J3490; Q0164

== ENCOUNTER 2017-10-23 07:13 | Observation (INO) | payer MEDICARE, BC ==
--- NOTE | 2017-10-06 17:13 | HP ---
HISTORY AND PHYSICAL: DATE OF PLANNED ADMISSION AND SURGERY: 10/23/17 HISTORY: Mr. Lee is an 82-year-old white male who is admitted with urinary retention for transurethral resection of the prostate. Mr. Lee had a long history of bladder outlet obstruction and he presented to my office about 2 months ago with urinary retention. At that time, he was noted to have a residual of 700 cc and an elevated creatinine of 1.7. His PSA was 2.2. He had a Varela catheter placed and he was started on finasteride. The patient presented to the emergency room 3 days later with small bowel obstruction and septic shock. He was admitted to the ICU and Dr. Bowman was consulted and he took him for urgent laparotomy. He was found to have an internal hernia from adhesions from a previous colon surgery, had lysis of adhesions. He was kept in the ICU postoperatively and he ultimately did very well and he fully recovered. His renal function went back to normal. The patient was discharged home on 09/04/17 on Varela catheter drainage and on the following Meds: 1. Finasteride 5 mg daily. 2. Allopurinol 300 mg daily for history of gout. 3. Symbicort inhaler. 4. Famotidine 20 mg twice a day. 5. Atorvastatin 40 mg daily. The patient did very well afterwards and fully recovered from his surgery. He was reevaluated in my office for work-up of the urinary retention. He had a cystoscopy, which showed a large obstructing prostate. Urodynamic studies showed adequate detrusor function with a voiding detrusor pressure of 50 cm of water, which will make him as an acceptable candidate for transurethral resection of the prostate. He failed 2 trials of voiding and the varela catheter had to be reinserted. The patient is still maintained on finasteride. PAST MEDICAL HISTORY AND SYSTEM REVIEW: Except for the recent episode of sepsis he is generally healthy and denies any cardiac or pulmonary diseases or symptoms. He denies any allergies to medications. PHYSICAL EXAMINATION GENERAL: He is a pleasant and healthy looking white male who looks good for his age. VITAL SIGNS: Blood pressure 150/80, pulse of 70. LUNGS: Clear. HEART: Regular and rhythmic. No murmurs. ABDOMEN: Soft. No masses. No tenderness. Well-healed abdominal incisions. EXTERNAL GENITALIA: Normal. He has a Varela catheter in place, draining clear urine. RECTAL: Showed an enlarged but nonsuspicious prostate IMPRESSION: 1. Urinary retention secondary to prostate enlargement with adequate detrusor function by urodynamic studies with failure of medical treatment and failure of 2 trials of voiding. 2. Recent laparotomy for bowel obstruction secondary to internal hernia associated with septic shock, fully recovered. PLAN: Plan is for transurethral resection of the prostate. I discussed the operation in detail with the patient and his family. Some of the potential complications including infection, hematuria, small incidents of urinary incontinence and possible recurrence of the retention. All their questions were answered. [id number]/[facility] #: [id number] JULIETTE
[~2017-10-23 07:13] MED LIST: Buffered Lidocaine 0.9% SYRIN* 5 ML/SYR SYRINGE INTRADERM ONE; Dexamethasone IV* 4 MG/ML 1 ML (4 MG) IV SLOW PU ONE; Gentamicin ADULT (*) 160 MG in NS 0.9% 100 ML* 100 ML IVPB ONE; Ondansetron ODT TAB* 4 MG SL PRN
[2017-10-23] MEDS ORDERED: Dexamethasone IV* 4 MG/ML 1 ML (4 MG) ONE (07:16)
[2017-10-23] MEDS ORDERED: Ondansetron ODT TAB* 4 MG ONE (07:17)
[2017-10-23] MEDS ORDERED: cefTRIAXone(*) 1 GM ADVAN/BAG ONE (07:17)
[2017-10-23] MEDS ORDERED: Buffered Lidocaine 0.9% SYRIN* 5 ML/SYR SYRINGE ONE (07:17)
[2017-10-23] MEDS ORDERED: Midazolam* 1 MG/ML 5 ML VIAL (5 MG) ONE (08:22)
[2017-10-23] MEDS ORDERED: Naloxone* 0.4 MG/ML 1 ML VIAL IV PRN (08:43)
[2017-10-23] MEDS ORDERED: fentaNYL* 50 MCG/ML 2 ML VIAL (100 MCG VIAL) IV PRN (08:43)
[2017-10-23] MEDS ORDERED: Ondansetron INJ* 2 MG/ML VIAL IV PRN (08:43)
[2017-10-23] MEDS ORDERED: HYDROmorphone INJ* 1 MG/ML CARPUJECT SYRINGE IV PRN (08:43)
[2017-10-23] MEDS ORDERED: oxyCODONE/Acetamin 5/325 MG* TAB PO PRN ×2 (08:43→12:38)
[2017-10-23] MEDS ORDERED: Bupivacaine-MPF SPINAL* 7.5 MG/ML - 2ML AMP ONE ×2 (09:27→09:48)
[2017-10-23] MEDS ORDERED: Lidocaine 2% PF * 5 ML VIAL ONE ×2 (09:27→09:48)
[2017-10-23] MEDS ORDERED: Propofol* 10 MG/ML 20 ML BTL IV PUSH ONE (09:48)
[2017-10-23] MEDS ORDERED: Famotidine TAB* 20 MG PO PRN (12:25)
[2017-10-23] MEDS ORDERED: Acetaminophen TAB* 325 MG PO PRN (12:32)
[2017-10-23] MEDS ORDERED: Oxybutynin TAB* 5 MG PO PRN (12:36)
[2017-10-23] MEDS ORDERED: Lidocaine 2% JELLY* 6 ML JELLY TOPICAL PRN (12:37)
[2017-10-23] MEDS ORDERED: Finasteride TAB* 5 MG PO SCH (18:00)
[2017-10-23] MEDS ORDERED: Atorvastatin* 40 MG TAB PO SCH (18:00)
[2017-10-23] MEDS: amLODIPine TAB* 5 MG PO SCH (20:39)
--- NOTE | 2017-10-24 01:35 | OP ---
DATE OF OPERATION: 10/23/17 - ROOM #349 DATE OF : 39 SURGEON: Ernesto Hinkle MD ANESTHESIOLOGIST: Sp Mcintosh MD ANESTHESIA: Spinal. PRE-OP DIAGNOSES: 1. Benign prostatic hyperplasia. 2. Urinary retention due to above. POST-OP DIAGNOSES: 1. Benign prostatic hyperplasia. 2. Urinary retention due to above. OPERATIVE PROCEDURE: Transurethral resection of the prostate. INDICATION FOR PROCEDURE: Mr. Lee is an 82-year-old white male, who had long history of a bladder outlet obstruction and who went into urinary retention about 2 months ago. Workup with cystoscopy and urodynamic studies showed a large obstructing prostate and good detrusor function. He failed a trial of voiding. Because of the above history, the patient admitted for TURP. PATHOLOGY AT CYSTOSCOPY: The penile and bulbar urethrae looked normal. The prostatic urethra measured 3 cm in length and there was significant degree of obstruction by bilobar hyperplasia of the prostate and elevation of the bladder neck. Examination of the bladder showed catheter reaction. There were heavy bladder trabeculations. The ureteral orifices looked normal. No calculi or diverticula or suspicious lesions were seen. The prostate adenoma was moderately vascular. DESCRIPTION OF PROCEDURE: After successful spinal anesthesia, the patient was placed in the lithotomy position and was prepped and draped for a cystoscopy. Cystoscopy was performed. The bladder was carefully inspected and the above findings were noted. The resectoscope was introduced inside the bladder. Mannitol-sorbitol solution was used for irrigation and the inflow and outflow were adjusted to avoid overdistention of the bladder. The portion of the median lobe was resected first to the level of the posterior bladder neck. The protruding portions of the lateral lobes of the prostate were then resected circumferentially to the level of the bladder neck muscle fibers. The resectoscope was then positioned at the level of the mid prostatic urethra and circumferential resection of the prostate adenoma was then performed. The resectoscope was then positioned at the level of the veru. The left lobe was then resected starting at 5 o'clock and proceeding anteriorly. The right lobe was resected next. The roof and the apical tissue were resected last. The bleeders were electrocoagulated and controlled. The limits of the resection were the bladder neck proximally, the veru distally and the capsule circumferentially. At the completion of the resection, the prostatic fossa was wide open. There was no residual obstructing adenomatous tissue. The external sphincter, the veru, the capsule, the bladder and the urethral orifices were all intact. Good hemostasis was achieved. All the prostate chips were evacuated. The resectoscope was then removed and a size 22-[place] Mc catheter was passed inside the bladder and the balloon inflated with 40 cc of water and taped under gentle traction to the right thigh of the patient. Irrigation yielded clear returns. The patient tolerated the procedure well and left the operating room in good condition. The blood loss was estimated at about 50 cc. The specimen was prostate chips. [id number]/[facility] #: [id number] [facility]OSPITALAlexi
[2017-10-24] MEDS ORDERED: Levofloxacin 750 MG IVPREMIX(* 750 MG/150 ML BAG IVPB ONE (07:00)
[2017-10-24 08:06] VITALS: BP 153/75
[2017-10-24] MEDS: amLODIPine TAB* 5 MG PO SCH (08:58)
[2017-10-24] MEDS ORDERED: Lactobacillus Acidophilus* 1 TAB PO SCH (09:00)
[2017-10-24] MEDS ORDERED: Vitamin B Complex TAB PO SCH (09:00)
[2017-10-24] MEDS ORDERED: Allopurinol TAB* 300 MG PO SCH (09:00)
--- NOTE | 2017-10-24 21:26 | DS ---
DISCHARGE SUMMARY: DATE OF ADMISSION: DATE OF DISCHARGE: 10/24/17 FINAL DIAGNOSES: 1. Benign prostatic hyperplasia. 2. Urinary retention due to above. 3. Asthma. 4. Hyperlipidemia. 5. Gout. OPERATION: Transurethral resection of the prostate on 10/23/17. HISTORY: Mr. Lee is an 82-year-old white male who had a long history of bladder outlet obstruction and prostate enragement and who presented to my office 2 months ago in urinary retention. At that time, he was noted to have a postvoid residual of 700 cc, had an elevated creatinine at 1.7. His PSA was 2.2. He had a Mc catheter placement and was started on finasteride. The patient was admitted 3 days later to the hospital with bowel obstruction and sepsis. He underwent emergency laparotomy by Dr. Garcias and the findings were internal adhesions and hernias. He did well post op, and has recovered well from his surgery. He was given 2 trials of voiding, the retention recurred and has been on catheter drainage. The patient was worked up with cystoscopy, which showed a large obstructing prostate and urodynamics studies which showed good detrusor function. With the patient fully recovered from his abdominal surgery and having persistent urinary retention, he was admitted for transurethral resection of the prostate. PAST MEDICAL HISTORY AND SYSTEM REVIEW: He has history of gout and maintained on allopurinol 300 mg daily. He has history of asthma, on inhaler. He has GERD , on famotidine 20 mg twice a day. He has hyperlipidemia on 40 mg daily. ALLERGIES: He denies any allergies to medications. PHYSICAL EXAMINATION: Preoperative physical exam was normal. Rectal exam showed an enlarged, but benign feeling prostate. LABORATORY DATA: Preoperative lab work was also within normal. His preoperative urine cultures showed Pseudomonas that was sensitive to Cipro, for which he was started on preoperatively. COURSE IN HOSPITAL: The patient was admitted the morning of his surgery. He was given IV gentamicin preoperatively. He underwent an uncomplicated transurethral resection of the prostate. He was kept overnight for observation. In the morning, the urine was still pink delighted [place], but there were no clots and he was feeling fine and had a good urine output. The patient is being discharged to home on his preoperative medications including the Cipro. He will be seen in the office next week for Mc catheter removal. Instructions were given for followup care. Pathology on the resected prostate tissue was benign. [id number]/[facility] #: [id number] JULIETTE
== END 2017-10-24 09:29 | disposition home or self-care (01) ==
LOC: OR 07:13 → PMRU 12:03 → SSU 12:09
PROVIDERS: ADMIT Urology; ATTEND Urology
PROC: 0VT08ZZ Resection of Prostate, Via Natural or Artificial Opening Endoscopic (ICD-10-PCS; principal; 2017-10-23 08:45)
DX: N40.1 Benign prostatic hyperplasia with lower urinary tract symptoms (principal); R33.8 Other retention of urine; J45.909 Unspecified asthma, uncomplicated; E78.5 Hyperlipidemia, unspecified; M10.9 Gout, unspecified; K21.9 Gastro-esophageal reflux disease without esophagitis; Z79.899 Other long term (current) drug therapy
CPT/HCPCS: 88305; 96374; A9270-GY; G0378; J0696; J1100; J1580; J2250; J2704